=== PATIENT | female | born 1950 | race Caucasian/White ===

== ENCOUNTER → 2016-08-22 | Outpatient (CLI) | payer BC, MEDICARE ==
[~2016-08-22] MED LIST: ALIGN4 MG PO; ASPIRIN EC81 MG PO; CARDIZEM60 MG PO; COLACE100 MG PO; CRESTOR20 MG PO; CYMBALTA60 MG PO; DILAUDID 2MG(HYD2 MG PO; DILAUDID2 MG PO; DRISDOL 5050000 UNIT PO; ESTRADIOL TOP; FISH OIL1000 MG PO; LIDOCAINE1 EACH TRANS; MIRALAX17 GM PO; MOBIC7.5 MG PO; MULTIVITAMINS1 EAC1 PO; NEURONTIN300 MG PO; NIFEREX-150) (150 MG PO; OCEAN NASAL) (A44 ML NOSE; OMEPRAZOLE20 MG PO; PRILOSEC20 MG PO; PROVENTIL OR V6.7 GM INH; SINGULAIR10 MG PO; SYMBICORT 16010.2 GM INH; TENORMIN50 MG PO; THERA-VITE W/ B1 TAB PO; TYLENOL325 MG PO; VALIUM5 MG PO; XARELTO10 MG PO; ZOFRAN4 MG PO
--- NOTE | ~2016-08-22 | ENPV ---
Vascular Lower Extremities DVT Study Procedure Demographics Patient Name LEONIE BUNCH Date of Study 08/22/2016 Patient Number [id number] Gender Female Date of 1950 Age 65 Visit Number [id number] Height Accession Number [id number] Weight Room Number BSA BMI Referring Won Hamilton MD Interpreting Doni Hernandez MD Physician Physician Physician Ordering Physician Won Kline MD High Speed Warper Tender Shahla Gandhi, RT,RVT,RDCS Daquan Юлия Oteroe RDCS, RVT Conclusions Summary No evidence of deep vein thrombosis or superficial thrombophlebitis in the right lower extremity . Procedure Type of Study: Veins:Lower Extremities DVT Study, Lower Extremity Right. Indications for Study:Swelling of Limb and Pain in Limb. Appropriate Use Criteria:8 Patient Status:Routine. Study Location:Vascular Lab. Technical Quality:Adequate visualization. - Preliminary reported to:Dr. Upton's Nurse. Velocities are measured in cm/s ; Diameters are measured in cm Right Lower Extremities DVT Study Measurements Right 2D and Doppler Measurements + + + + +------+------+ + !Location !Visualized!Compressibility!Thrombosis!Signal!Reflux!Reflux ! ! ! ! ! ! ! !(sec) ! + + + + +------+------+ + !GSV Thigh !Yes !Yes !None !Phasic! ! ! + + + + +------+------+ + !Common !Yes !Yes !None !Phasic! ! ! !Femoral ! ! ! ! ! ! ! + + + + +------+------+ + !Prox !Yes !Yes !None !Phasic! ! ! !Femoral ! ! ! ! ! ! ! + + + + +------+------+ + !Mid Femoral!Yes !Yes !None !Phasic! ! ! + + + + +------+------+ + !Dist !Yes !Yes !None !Phasic! ! ! !Femoral ! ! ! ! ! ! ! + + + + +------+------+ + !Popliteal !Yes !Yes !None !Phasic! ! ! + + + + +------+------+ + !Gastroc !Yes !Yes !None ! ! ! ! + + + + +------+------+ + !PTV !Yes !Yes !None ! ! ! ! + + + + +------+------+ + !Peroneal !Yes !Yes !None ! ! ! ! + + + + +------+------+ + Left Lower Extremities DVT Study Measurements Left 2D and Doppler Measurements + + + + +------+------+ + !Location !Visualized!Compressibility!Thrombosis!Signal!Reflux!Reflux ! ! ! ! ! ! ! !(sec) ! + + + + +------+------+ + !Common !Yes !Yes !None !Phasic! ! ! !Femoral ! ! ! ! ! ! ! + + + + +------+------+ + Signature dtt: MOISES BEE dtoswaldo: 08/22/16 1631 Physician Self Edit
== END | disposition disaster alternative care site (69) ==
LOC: GCAR 16:00
DX: M79.604 Pain in right leg (principal); M79.89 Other specified soft tissue disorders; Z96.641 Presence of right artificial hip joint

== ENCOUNTER 2016-09-25 10:00 | Inpatient (IN) | payer BC, MEDICARE ==
[~2016-09-25] VITALS: Ht 157.5 cm; Wt 74.1 kg
--- NOTE | ~2016-09-25 | OR ---
PATIENT'S NAME: LEONIE BUNCH [facility] AGE: 66 Y [address] ROOM: [place] [address] LOCATION: [facility] ADMIT DATE: 10/02/2016 OR/Procedure Report DISCHARGE DATE: FAMILY PHYSICIAN: Louisa Sethi MD ATTENDING PHYSICIAN: JANETTE MEHTA SURGEON: Janette Mehta MD CUSTOMER BUSINESS MANAGER: Gorge Xiong CST/SHANTEL and Janette Lopez. DATE OF PROCEDURE: 10/02/2016 PRE-OP DIAGNOSIS: Degenerative joint disease left knee. POST-OP DIAGNOSIS: Degenerative joint disease left knee. OPERATION: Left total knee arthroplasty with computer navigation. ANESTHESIA: Spinal anesthesia plus adductor canal block plus periarticular local anesthesia (ropivacaine with epinephrine and Toradol). ESTIMATED BLOOD LOSS: Less than 10 mL. DRAIN: None. SPECIMEN: None. COMPLICATIONS: None. IMPLANT SYSTEM: Vivian Triathlon. Size 4 left posterior stabilized femoral component. Size 3 Davis Modular tibial baseplate. 9 mm posterior stabilized size 3 X3 tibial polyethylene insert. 29 mm Oval X3 patellar component (triple pegged). INDICATIONS FOR SURGERY: Leonie Bunch is a 66-year-old female who presents with advanced left knee degenerative joint disease and associated severely compromised activities of daily living. The patient has decided to proceed with knee replacement after having been thoroughly counseled regarding the associated risks, benefits, and limitations. We have specifically reviewed the risks and implications of infection, deep venous thrombosis, pulmonary embolism, mortality, neurovascular complications, blood transfusion (and associated potential for disease transmission or transfusion reaction), stiffness, instability, mechanical deterioration of the components (due to wear and or loosening), and the potential need for revision. We have also emphasized the importance of active involvement and compliance with post- operative physical therapy as a means of optimizing range of motion and PATIENT'S NAME: LEONIE BUNCH [facility] AGE: 66 Y [address] ROOM: [place] [address] LOCATION: [facility] ADMIT DATE: 10/02/2016 OR/Procedure Report DISCHARGE DATE: FAMILY PHYSICIAN: Louisa Sethi MD ATTENDING PHYSICIAN: JANETTE MEHTA functional recovery. Informed consent has been granted. DESCRIPTION OF PROCEDURE: The patient was positioned supine after administration of anesthesia and prophylactic antibiotics. A well-padded pneumatic tourniquet was placed around the left proximal thigh, and the left lower extremity was prepped and draped with vigilant sterile technique. The patient's name as well as the intended operative side and procedure were confirmed with a verbal time-out involving myself, the circulating nurse, the scrub nurse, and the anesthesiologist. Examination under anesthesia demonstrated no active skin lesions or masses. There was no erythema. There was no abnormal warmth. There was a large effusion. There was severe ipsilateral pes planovalgus. Range of motion under anesthesia was from 2 degrees of hyperextension to 140 degrees of flexion. There was no ligamentous insufficiency. The left lower extremity was elevated and exsanguinated with an Esmarch wrap, and the pneumatic tourniquet was inflated to 300 mmHg. The knee was approached through a longitudinal midline incision. A medial parapatellar arthrotomy was performed and the patella was everted. Examination of the joint space demonstrated a large amount of benign-appearing translucent synovial fluid. There were no loose bodies. There was no significant synovitis. Cruciate ligaments were intact. There was a small osteophyte at the intercondylar notch. There was moderate chondrocalcinosis at the lateral tibial plateau and lateral meniscus. There was complex degenerative tearing of the medial meniscus including a large horizontal cleavage tear. There was moderate inner perimeter tearing of the lateral meniscus. There was full- thickness fissuring at the central aspect of the lateral femoral condyle. There were generalized grade 2 degenerative changes at the medial tibial plateau. There was mild grade 3 chondromalacia at the medial and lateral femoral condyles. There were small osteophytes at the lateral femoral condyle as well as the lateral trochlea. There was full-thickness loss of articular cartilage throughout the lateral two-thirds of the femoral trochlea and 90% of the patella. There were associated longitudinal striations in the underlying eburnated subchondral bone yielding a corduroy appearance. Remnants of the menisci and cruciate ligaments were excised. The Smarp navigation femoral tracker was pinned in place at the distal aspect of the femoral trochlea. Absence of motion between the femur and the tracking device was confirmed manually and visually. Femoral osseous landmarks were obtained in order to calibrate the computer navigation system. Landmarks included the center of rotation of the ipsilateral hip, the center-point of the distal femur, the femoral AP axis, 57 points on the medial femoral condyle articular surface, and 57 points on the lateral femoral condyle articular PATIENT'S NAME: LEONIE BUNCH [facility] AGE: 66 Y [address] ROOM: [id number] [place], [place] [address] LOCATION: [facility] ADMIT DATE: 10/02/2016 OR/Procedure Report DISCHARGE DATE: FAMILY PHYSICIAN: Louisa Sethi MD ATTENDING PHYSICIAN: JANETTE MEHTA. The [employer] computer navigation system was subsequently utilized to position the distal femoral resection block such that the distal femoral resection was performed perfectly perpendicular to the femoral mechanical axis. The distal femoral resection was performed with a Efficas oscillating saw. The [employer] computer navigation tibial tracker was pinned in place at the anterior aspect of the tibial plateau. Absence of motion between the tibia and the tracking device was confirmed manually and visually. Tibial osseous landmarks were obtained in order to calibrate the computer navigation system. Landmarks included the center-point of the tibial plateau, the AP tibial axis, 57 points on the medial tibial plateau articular surface, 57 points on the lateral tibial plateau articular surface, the medial malleolus, and the lateral malleolus. The [employer] computer navigation system was subsequently utilized to position the proximal tibial resection block such that the proximal tibial resection was performed perfectly perpendicular to the tibial mechanical axis. The proximal tibial resection was performed with a [employer] oscillating saw. Perpendicularity of the tibial resection with respect to the tibial shaft axis was reconfirmed by inserting a spacer- block attached to an extramedullary guide jacobo. External rotation of the anterior and posterior femoral resections was set parallel to the epicondylar axis and carefully adjusted in order to create a rectangular flexion gap. The box resection was performed with a reciprocating saw. Anterior and posterior chamfer resections were performed with the oscillating saw. Posterior condyle osteophytes were excised with an osteotome. All other osteophytes were excised with a rongeur. Resection of all remnants of the menisci was reconfirmed. Flexion and extension gaps were confirmed to be symmetric and well balanced with a spacer-block technique. The patella resection was performed with an oscillating saw such that the composite thickness of the reconstructed patella was equivalent to the thickness of the [place] patella. Patella tracking was confirmed to be optimal. A lateral retinacular release was required in order to optimize patella tracking. All trial components were removed and all prepared osseous surfaces were thoroughly irrigated with pulsatile saline lavage and dried prior to cementing all three components in a single stage using Dang Simplex cement containing pre-mixed tobramycin. All extruded excess cement was removed. The entire joint space was thoroughly inspected and thoroughly irrigated with bacteriostatic pulsatile saline lavage to assure that there was no residual debris of any sort. Final range of motion was from full extension (with no passive PATIENT'S NAME: LEONIE BUNCH [facility] AGE: 66 Y [address] ROOM: [address] [address] LOCATION: [facility] ADMIT DATE: 10/02/2016 OR/Procedure Report DISCHARGE DATE: FAMILY PHYSICIAN: Louisa Sethi MD ATTENDING PHYSICIAN: JANETTE MEHTA hyperextension), 130 degrees of flexion. Patella tracking was reconfirmed to be optimal. There was very good anteroposterior stability at 90 degrees of flexion. There was 1 mm of medial lift-off to valgus stress in full extension. There was less than 1 mm of lateral lift-off to varus stress in full extension. The arthrotomy was closed with multiple simple and [id number] interrupted #1 Vicryl. Subcutaneous tissues were thoroughly re-irrigated with bacteriostatic pulsatile saline lavage. Subcutaneous tissues were re- approximated with simple buried interrupted #0 Vicryl sutures. The skin was closed with simple buried interrupted 2-0 Vicryl sutures followed by surgical deloris. The dressing consisted of Xeroform gauze, 4x4 gauze, ABD pads and two 6-inch Jimmie Wraps. There were no intra-operative complications. MD KRISTEL SRINIVASAN/leonidas /[id number] d: 10/02/16 1025 t: 10/03/162, OPERATIVE SUMMARY
--- NOTE | ~2016-09-25 | DS ---
PATIENT'S NAME: LEONIE BUNCH [facility] AGE: 66 Y [address] ROOM: [place] [address] LOCATION: [facility] ADMIT DATE: 10/02/2016 Discharge Summary DISCHARGE DATE: 10/06/2016 FAMILY PHYSICIAN: Louisa Sethi MD ATTENDING PHYSICIAN: Wallace Upton DATE OF PROCEDURE: 10/02/2016. PRIMARY DIAGNOSIS: Degenerative joint disease of the left knee. SECONDARY DIAGNOSIS: 1. Hypertension. 2. Hyperlipidemia. 3. Supraventricular tachycardia. PROCEDURE PERFORMED: Left total knee arthroplasty. HISTORY: The patient is a 66-year-old female, who presented with advanced left knee degenerative joint disease and associated severely compromised activities of daily living. The patient has decided to proceed with total knee arthroplasty after having been thoroughly counseled regarding the risks, benefits, limitations and alternatives. Please refer to the outpatient clinic notes and admission history and physical for this patient. HOSPITAL COURSE: The patient underwent a left total knee arthroplasty on 10/02/2016 without complications. Spinal anesthesia plus adductor canal block plus periarticular local anesthesia was utilized. The patient received 24 hours of perioperative prophylactic antibiotics and remained hemodynamically stable, neurovascularly intact throughout the entire hospital course. The postoperative prophylactic deep venous thrombosis prophylaxis consisted of Xarelto, early mobilization and pneumatic compression devices. Daily physical therapy for gait training, transfer training range of motion and quadriceps isometric exercises were received. The patient progressed well in physical therapy. On the date of discharge, 10/06/2016, the incision at the knee was healing well and showed no signs of infection. DISPOSITION: Home. DISCHARGE ACTIVITY: The patient is to bear weight as tolerated with range of motion and quadriceps isometric exercises as instructed. She is to hold her ROM until her follow-up appointment. The operative extremity is to be elevated at least 90% of the day. There is to be sterile 4x4 gauze dressings to the incision daily. Dr. Upton is to be notified immediately if there is any increased pain, fevers, chills erythema or drainage. She may remove her drssing and shower on 10/07/2016. Then recover with 4x4's and tubigrip. PATIENT'S NAME: LEONIE BUNCH [facility] AGE: 66 Y [address] ROOM: [place] [address] LOCATION: [facility] ADMIT DATE: 10/02/2016 Discharge Summary DISCHARGE DATE: 10/06/2016 FAMILY PHYSICIAN: Louisa Sethi MD ATTENDING PHYSICIAN: Wallace Upton DISCHARGE MEDICATIONS: 1. Xarelto 10 mg one tablet daily for 12 days for postoperative DVT prophylaxis. 2. Gabapentin 300 mg one tablet p.o. every night for seven days for pain. 3. Hydromorphone 2 mg one to two tablets every 4 hours p.r.n. for pain. 4. Diazepam 5 mg one half to one tablet p.o. every 6 hours p.r.n. for muscle spasms. She was then instructed to continue all her other pre-admission medications as instructed by her Internal Medicine doctor. FOLLOWUP: Followup appointment is to be with Dr. Upton on 10/09/[address] Upton's office for her initial postoperative evaluation with x-rays of her left knee at that time. SUSIE CONNORS PA-C FOR MD EARL SRINIVASAN/leonidas /[id number] d: 10/16/16622 t: 11/04/16 2139, DISCHARGE SUMMARY
[~2016-09-25 10:00] MED LIST changes: -LIDOCAINE1 EACH TRANS
--- NOTE | 2016-10-02 10:16 | NUR ---
1000 ATTEMPTED TO CALL OSMANI ZEPEDA ON REPORT. WAS TOLD THAT RN WOULD CALL BACK. NOTIFIED IN WAITING ROOM AND WILL MEET PT IN ROOM.
--- NOTE | 2016-10-02 17:16 | NUR ---
D: Patient received form PACU at 1015. Routine VS. Dressing CDI. CSM WNL. Dilaudid 2mg and Tylenol ES last given at 1641. Toradol 15mg at 1305. Dilaudid 0.2 mg IVP given at 1351. Kpad to back due to achiness in lower back. Up in recliner/commode with walker and one assist. Voiding without difficulty. Taking PO well.
--- NOTE | 2016-10-02 19:12 | NUR ---
I reviewed and approve of charting by SN Ana M
--- NOTE | 2016-10-03 05:03 | NUR ---
Significant Event: Patient alert and oriented. Up with 1 assist. IV saline locked. Denies abnormal sensation. VSS on 1L oxygen via nasal cannula. Voiding without difficulity Rested throughout shift. Pleasant and cooperative with cares. Follow up: continue to monitor
--- NOTE | 2016-10-03 07:25 | NUR ---
D: Patient assist to commode/recliner with walker and one assist. C/O lt knee pain. Noted HR at 166 on BP monitor. Apical pulse 166. Patient c/o feeling weak. Assisted back to bed. O2 at 1L per nasal cannula. Heart rate remains in 160's. 0740 Dr. Hernández notified and orders received. 0804 Lopresser 5mg IVP given. Jorge Luis WERNER in room. 0810 BP 143/73-72-16-94% at 1L O2. Patient reports feeling better.
--- NOTE | 2016-10-03 09:30 | NUR ---
Introduced self/role to patient. Her plan was to go home om Saturday when she will have more help. Her sister is coming down Saturday evening. Her will also be around. Didn't think she needed any other DME. Anticipated discharge was tomorrow. Patient reported she was also having heart issues which we are monitoring. Added my name to her marker board, will conitnue to follow.
--- NOTE | 2016-10-03 09:45 | NUR ---
D: Telemetry called and reports patient's HR 160's SVT. BP 106/64. 0950 DEBBI Sutherland notified. Orders received. 1013 Lopressor 5mg IVP given. 1040 DEBBI Kang notified of HR 150's. Orders received.
--- NOTE | 2016-10-03 10:49 | NUR ---
D: Patient HR 160's. Lopressor 5 mg given IVP at 0804. Hr went down to 70's. 0945 HR back up to 160's -SVT per telemetry. BP 106/64. Lopressor 5mg IVP and cardizem 60mg po given at 1013. HR continues at in 150's. Jimmie wrap dressing dry and intact to lt knee. CSM WNL. CSM checks q2h until 1500 then q4h. Dilaudid 2mg and tylenol ES 1000mg last at 1022. Zofran 4mg IVP at 0852 for nausea. DIlaudid 0.2 mg IVP x2 last at 0848. C/O lt knee pain and rt lower back pain. One assist with walker to chair/commode. Alert and oriented. EZ wrap to left knee.
--- NOTE | 2016-10-03 14:49 | NUR ---
I reviewed and approve of charting by SN Hernan.
[2016-10-03 15:11] LABS: ANION GAP 10.7 (10.0-19.0); BLOOD UREA NITROGEN 6 mg/dL (6-24); CALCIUM 7.8 mg/dL (8.5-10.5); CHLORIDE 94 mMol/L (96-110); CO2 28 mMol/L (22-32); CREATININE 0.5 mg/dL (0.5-1.1); ESTIMATED GFR (MDRD EQUATION) > 60; MAGNESIUM 1.8 mg/dL (1.8-2.6); POTASSIUM 3.7 mMol/L (3.7-5.1); SODIUM 129 mMol/L (135-145)
--- NOTE | 2016-10-03 17:39 | NUR ---
1145 PT TRANSFERED BY BED TO 6336 FOR SVT RATES 160'S AT TIME OF TRANSFER PT IS A/O PALE TO ALMOST SALLOW COLORED COOL AND CLAMY TO THE TOUCH, BUT PT SAYS SHE FEELS HOT. 105/51-98/56 ARE HER 2 OPENING SYSTOLOIC PRESSURES. ORDERED TO ASTART CARDIZEM BOLUS AND DRIP. PRESSURES GOT LOW 85/54. DR ALCANTARA CALLED AND NEW ORDERS RECIVED, NS OPEN FOR 500 MLS, AND DIGOXIN .[address] ALCANTARA NOW AT BEDSIDE. 1210 LOPRESSOR 5 MG GIVEN, ONLY 2.5 MG ADMINISTERED AND PT CONVERTED TO SR RATES 60'S. PT MORE PINK NOW AND SAYS SHE FEELS BETTER. DID NOT GIVE CARDIZEM BOLUS, BUT DID START CARDIZEM DRIP AT 5 MG/HR TO KEEP HEART RATE MORE UNDER CONTROLL. PRESSURES REMAIN MOSTLY 120'S TO 130'S, PT IS STABLE. ICE PACKS TO BILATERAL KNEES PER PT REQUEST.
[2016-10-04 04:44] LABS: ALBUMIN 3.7 gm/dL (3.5-5.0); ANION GAP 12.6 (10.0-19.0); BLOOD UREA NITROGEN 6 mg/dL (6-24); CALCIUM 8.8 mg/dL (8.5-10.5); CHLORIDE 99 mMol/L (96-110); CO2 25 mMol/L (22-32); CREATININE 0.5 mg/dL (0.5-1.1); ESTIMATED GFR (MDRD EQUATION) > 60; MAGNESIUM 2.5 mg/dL (1.8-2.6); PHOSPHORUS 3.6 mg/dL (2.5-4.9); POTASSIUM 3.6 mMol/L (3.7-5.1); SODIUM 133 mMol/L (135-145)
--- NOTE | 2016-10-04 05:06 | NUR ---
Significant Event:A/Ox3. VSS on 2L/NC. Afebrile. Patient remains in SR HR 60-70s all shift. Cardizem remains at 5mg/h, held PO dose while drip is running. Dilaudid TECHNICAL ACCOUNT EXECUTIVE demand only 0.1mg with 15 minute LO. 9 demands/ 8 given. 2 G Mg replaced this AM mg 2.5. Transfers 1 assist to BSC. Voiding well. Ice to R)knee off and on throughout the shift. Follow up:Possible transfers back to 3/[facility]U today.
--- NOTE | 2016-10-04 12:33 | NUR ---
Significant Event: PT AMB 1 ASST, SHOWER THIS AM OK. 02 COULD NOT BE OFF, HAD TO BE 1LITER. FLOWERS SALESPERSON DCD AT 1215. ES TYLENOL GIVEN AT NOON. LASIX IV GIVEN, GOOD UOP. K 3.6 PO K+TO BE GIVEN TODAY. P/T WORKS WITH PT AND OT. CARDIZEM DRIP OFF THIS AM AND PO STARTED AGAIN. SBP WNL. MG 2.5. NA 133. MIRALAX AND STOOL SOFTENER GIVEN. INCISION LOOKS NORMAL WITH BLAIR INTACT, SINAN AND OLD DRESSING REMOVED HAD SCANT BLOODY, AND NEW GAUZE AND TUBIGRIP ON. PT USES WALKER WELL. Follow up:
--- NOTE | 2016-10-04 16:29 | NUR ---
Significant Event: TRANSFERED DOWN FROM U AT 1230. DRSG CHANGED TO KN INCISION INTACT WITH BLAIR, KNEE ECCHYMOTIC. CSM GOOD. HAD DILAUDID 0.2 MG IV AT 1300, HAD DILAUSIS 2 MG 1 TAB X2 LASTAT 1500. RECIEVED VALIUM 5 MG 1 TAB AT 1600 FOR SPASMS. REPORTS SPASMSGETTING BETTER OF 1645. ICE TO KNEE, POSS DISMISSAL SATURDAY...IS ON TELE NO CALLS.... Follow up:
--- NOTE | 2016-10-05 04:53 | NUR ---
Significant Event: Dressing was reinforced per MD order. CSM WNL. 1 L of oxygen nasal cannula. Pain issues at the beginning of the shift. Dilaudid at 419. Toradol at 2040. Dilaudid IV at 1945. Voids without difficulty. Follow up:
[2016-10-05 05:55] LABS: CALCIUM 8.7 mg/dL (8.5-10.5); CHLORIDE 101 mMol/L (96-110); CO2 26 mMol/L (22-32); CREATININE 0.5 mg/dL (0.5-1.1); ESTIMATED GFR (MDRD EQUATION) > 60; SODIUM 133 mMol/L (135-145)
[2016-10-05 05:56] LABS: ANION GAP 10.5 (10.0-19.0); BLOOD UREA NITROGEN 13 mg/dL (6-24)
[2016-10-05 05:57] LABS: POTASSIUM 4.5 mMol/L (3.7-5.1)
--- NOTE | 2016-10-05 16:57 | NUR ---
Significant Event: dressing to L) knee changed this AM after shower, dressing changed by Eliot LO. note Jimmie dressing c/d/i this afternoon. csm assessments wnl. received dilaudid 2mg po every 2 hours, rates l) knee pain 8-3 on pain scale, received routine tylenol extra strength 2 tabs and po valium at 1125. ambulates to bathroom, kapadia and up to chair with sba, use of walker/gait belt, gait steady. bilateral knee high teds and foot pumps on. ez wrap and ice bag in place l) knee/thigh. On telemetry with no calls. received last dilaudid at 1600. Follow up:
--- NOTE | 2016-10-06 02:31 | NUR ---
Significant Event: A&Ox3, VSS on room air. Patient O2 SATs do drop into the high 80's while asleep. Patient refusing oxygen tonight as she "wants to go home". Rates pain from 7-9/10 but shows no non-verbal signs of pain and appears to rest comfortably between medication administrations. PO dilaudid, 2mg, given Q2 hrs. Patient requested to be woken up every 2 hrs for pain medication. Valium given at HS per patient request. Up to bathroom and ambulating in room with SBA. Follow up: D/C to home today.
[2016-10-06 07:14] LABS: ANION GAP 12.1 (10.0-19.0); BLOOD UREA NITROGEN 11 mg/dL (6-24); CALCIUM 8.8 mg/dL (8.5-10.5); CHLORIDE 99 mMol/L (96-110); CO2 29 mMol/L (22-32); CREATININE 0.5 mg/dL (0.5-1.1); ESTIMATED GFR (MDRD EQUATION) > 60; POTASSIUM 4.1 mMol/L (3.7-5.1); SODIUM 136 mMol/L (135-145)
[2016-10-06] MEDS ORDERED: COLACE100 MG PO (08:08)
[2016-10-06] MEDS ORDERED: NEURONTIN300 MG PO (08:09)
[2016-10-06] MEDS ORDERED: MIRALAX17 GM PO (08:19)
[2016-10-06] MEDS ORDERED: VALIUM5 MG PO (08:20)
[2016-10-06] MEDS ORDERED: DILAUDID 2MG(HYD2 MG PO (08:21)
[2016-10-06] MEDS ORDERED: XARELTO10 MG PO (08:22)
--- NOTE | 2016-10-06 12:35 | NUR ---
D: PATIENT ALERT AND ORIENTED X3. AMBULATES AD BENNETT AND UP TO CHAIR WITH SBA, USE OF WALKER/GAIT BELT. SINAN DRESSING TO L) KNEE C/D/I. CSM ASSESSMENTS WNL. PAIN WELL CONTROLLED WITH PO DILAUDID 2MG TAB GIVEN ABOUT EVERY 2 HOURS AND TYLENOL EXTRA STRENGTH GIVEN LAST AT 1135 AND VALIUM PO GIVEN LAST AT 0915. BILATERAL KNEE HIGH DECLAN HOSE AND FOOT PUMPS ON. EZ WRAP TO L) KNEE. DISCHARGE INSTRUCTIONS REVIEWED WITH PATIENT AND , VERBALIZES UNDERSTANDING. PATIENT DISMISSED TO HOME, ACCOMPANIED BY . ASSISTED TO VEHICLE VIA W/C AND TA ASSISTANCE.
== END 2016-10-06 12:34 | disposition disaster alternative care site (69) | DRG 470 ==
LOC: G3N 10-02 05:12 → GPCU 10-03 11:38 → G3N 10-04 12:34
PROVIDERS: Internal Medicine; ADMIT Orthopaedic Surgery
PROC: 0SRD0J9 Replacement of Left Knee Joint with Synthetic Substitute, Cemented, Open Approach (ICD-10-PCS; principal; 2016-10-03)
DX: M17.12 Unilateral primary osteoarthritis, left knee (principal); E87.1 Hypo-osmolality and hyponatremia; I10 Essential (primary) hypertension; I47.1 Supraventricular tachycardia; E78.5 Hyperlipidemia, unspecified; J45.909 Unspecified asthma, uncomplicated; M54.5 Low back pain; R06.00 Dyspnea, unspecified; R09.02 Hypoxemia; E87.70 Fluid overload, unspecified
CPT/HCPCS: C1713; C1776; J1100; J1160; J1170; J1885; J1940; J2001; J2250; J2405; J2795; J3475; J7030; J7040; J7050; J7120; P9045

== ENCOUNTER 2016-12-13 19:50 | Inpatient (IN) | payer BC, MEDICARE ==
[~2016-12-13] VITALS: Ht 154.9 cm; Wt 67.3 kg
--- NOTE | ~2016-12-13 | OR ---
PATIENT'S NAME: LEONIE BNUCH [facility] AGE: 66 Y [address] ROOM: [id number] [place], [place] [address] LOCATION: GICU ADMIT DATE: 12/13/2016 OR/Procedure Report DISCHARGE DATE: FAMILY PHYSICIAN: Louisa Sethi MD ATTENDING PHYSICIAN: Leola Hodges SURGEON: Leola Hodges MD HIDE MEASURING MACHINE OPERATOR: Daniel Alonso CST. DATE OF PROCEDURE: 12/15/2016 PREOPERATIVE DIAGNOSES: 1. Left pontine hemorrhage. 2. Non-functioning right ventriculostomy. POSTOPERATIVE DIAGNOSES: 1. Pontine hemorrhage. 2. Replaced ventriculostomy. PROCEDURE PERFORMED: Replacement of right frontal ventriculostomy. ANESTHESIA: General. ANESTHESIA PROVIDER: Piyush Cruz MD. HISTORY: The patient is a 66-year-old female, who underwent placement of ventriculostomy for pontine hemorrhage and potential hydrocephalus. The ventriculostomy was inserted on patient's admission on December 13, 2016. The ventriculostomy worked well at first, but then started to slow down, and was no longer working by the . The patient's ventricles had gone up slightly. I therefore felt that it was necessary to replace the ventriculostomy to provide a means of decompressing the ventricles and also to monitor the patient's intracranial pressure. I discussed the procedure with the patient's over the phone and consent was obtained. The patient was brought to the operating room for replacement of the ventriculostomy. PROCEDURE IN DETAIL: In the operating room, the patient was placed in a supine position. Sedation was given. Her head was placed in a gel donut. The site of the ventriculostomy was exposed. The area was prepped in a sterile fashion. Initial attempts at flushing the ventriculostomy were unsuccessful. We therefore took out the old ventriculostomy, and using the same entry point, placed another ventriculostomy. The replacement ventriculostomy worked very well. It was secured to the scalp. The incision was closed, and the patient was brought back to the intensive care unit. PATIENT'S NAME: LEONIE BUNCH [facility] AGE: 66 Y [address] ROOM: [id number] [place], [place] [address] LOCATION: GICU ADMIT DATE: 12/13/2016 OR/Procedure Report DISCHARGE DATE: FAMILY PHYSICIAN: Louisa Sethi MD ATTENDING PHYSICIAN: Leola Hodges ATTESTATION: I was present during the entire procedure, assisted by operating room personnel. COMPLICATIONS: There were no apparent intraoperative complications. COUNT RESULTS: Swabs, needles, and instruments were all accounted for at the end of the case. ESTIMATED BLOOD LOSS: Less than 30 mL. There was no reason for blood transfusion. MD JUANIS WILCOXO/modl /[id number] d: 12/22/1620 t: 12/25/16 1931, OPERATIVE SUMMARY
--- NOTE | ~2016-12-13 | CON ---
PATIENT'S NAME: LEONIE BUNCH [facility] AGE: 66 Y [address] [place]: [id number] [address] LOCATION: GICU ADMIT DATE: 12/13/2016 Consultation DISCHARGE DATE: FAMILY PHYSICIAN: Louisa Sethi MD ATTENDING PHYSICIAN: Leola Hodges REFERRING PHYSICIAN: Jaylen Wolfe MD REASON FOR CONSULT: Paroxysmal atrial fibrillation SVT HISTORY OF PRESENT ILLNESS: The patient is a 66-year-old female, who was admitted yesterday secondary to fall and altered mental status. She has a history of chronic brain bleed and had a ventricular ostomy tube placed on December 13 that was no longer functioning. She was admitted to the ICU for further evaluation and treatment. She underwent a ventriculostomy replacement with Dr. Hodges yesterday. She was noted to have runs of SVT during the night. She had come in with home medications of labetalol. This was stopped and she was started on metoprolol and amiodarone with good response. The patient states that during the episode of SVT, she felt her heart racing, however, did not have chest pain or pressure. She did not feel dizzy. She does not have any shortness of breath, nausea, or other symptoms. She is feeling fine at this moment. PAST MEDICAL HISTORY: 1. Paroxysmal atrial fibrillation. 2. Subdural hematoma. PAST SURGICAL HISTORY: 1. Right hip. 2. Hysterectomy. 3. Tonsillectomy. 4. Cholecystectomy. 5. Carpal tunnel surgery. REVIEW OF SYSTEMS: Negative except as noted in the HPI. FAMILY HISTORY: Noncontributory. SOCIAL HISTORY: . No tobacco. Daily alcohol. ALLERGIES: PENICILLIN AND SULFA. PATIENT'S NAME: LEONIE BUNCH [facility] AGE: 66 Y [address] ROOM: [id number] [place] [id number] LOCATION: GICU ADMIT DATE: 12/13/2016 Consultation DISCHARGE DATE: FAMILY PHYSICIAN: Louisa Sethi MD ATTENDING PHYSICIAN: Leola Hodges MEDICATIONS: Please see medication list. PHYSICAL EXAMINATION: VITAL SIGNS: BP 138/79, heart rate of 62, O2 saturation 98% on room air. GENERAL: No apparent distress, alert, oriented x3. HEENT: Normocephalic, atraumatic. Partially shaved hair secondary to surgery. NECK: Supple. CARDIOVASCULAR: Regular rate and rhythm without murmurs, gallops, or rubs. LUNGS: Clear to auscultation bilaterally. ABDOMEN: Soft, nontender. Bowel sounds positive. IMAGING DATA: CT imaging, chest x-ray are in chart. LABORATORY DATA: CMS today within normal limits. ASSESSMENT AND PLAN: A 66-year-old female, status post right frontal ventriculostomy replacement for a pontine hemorrhage, chronic subdural hemorrhage, and possible hydrocephalus. 1. Paroxysmal atrial fibrillation. The patient had been rate controlled on labetalol, now using metoprolol and amiodarone. Her CHADS-VASc score is 4, which is high risk for stroke; however, the patient is not a candidate for anticoagulation secondary to chronic brain bleed. Recommend follow up outpatient for alternative procedures (Left Atrial Appendage obstruction) to help decrease her risk score. 2. Supraventricular tachycardia, rate controlled with metoprolol and amiodarone with good response. Heart rates in the 60s to 80s. Recommend continuing this for now. She had an echo this morning; will review. She has infrequent episodes and self limiting, has about 3-4 episodes a year prior to this admission. Thank you for this consult and for allowing us to care for this patient. YUILA JUAN MD RESIDENT FOR MD OSCAR RIVERA/leonidas /[id number] d: 12/25/16 1455 t: 01/01/17 1612, CONSULTATION REPORT
--- NOTE | ~2016-12-13 | ER ---
PATIENT'S NAME: LEONIE BUNCH [facility] AGE: 66 Y [address] ROOM: [place] [address] LOCATION: [facility] ADMIT DATE: 12/13/2016 ER/Outpatient Report DISCHARGE DATE: FAMILY PHYSICIAN: Louisa Sethi MD ATTENDING PHYSICIAN: Leola Hodges Time of Arrival: 1950 hours. Time of Evaluation: 1950 hours. CHIEF COMPLAINT: Brain bleed. HISTORY OF PRESENT ILLNESS: The patient is a 66-year-old female, who presents to the emergency department today with chief complaint of brain bleed. She was intubated and sedated at [place]. She was transferred here for higher level of care and neurosurgical intervention. She was brought to the emergency department for re-evaluation and possible transfer directly to surgery. PAST MEDICAL HISTORY: Atrial fibrillation and subdural hematoma. PAST SURGICAL HISTORY: Right hip. SOCIAL HISTORY: No tobacco use. Daily alcohol use. No illicit drug use. ALLERGIES: PENICILLIN AND SULFA. MEDICATIONS: Please see list. REVIEW OF SYSTEMS: Unable to be reviewed secondary to the patient's condition and intubation at this time. PHYSICAL EXAMINATION: VITAL SIGNS: Blood pressure 138/77; pulse 62; respiratory rate, currently being ventilated on the ventilator; temperature 97.7; and oxygen saturation 98%. HEENT: Normocephalic, atraumatic. Pupils are unable to be assessed due to the patient's eyelids are taped. NECK: Supple. PATIENT'S NAME: LEONIE BUNCH [facility] AGE: 66 Y [address] ROOM: [place] [address] LOCATION: [facility] ADMIT DATE: 12/13/2016 ER/Outpatient Report DISCHARGE DATE: FAMILY PHYSICIAN: Louisa Sethi MD ATTENDING PHYSICIAN: Leola Hodges CARDIOVASCULAR: Regular rate and rhythm. LUNGS: Clear to auscultation bilaterally. ABDOMEN: Soft, nontender, nondistended. No rebound, rigidity, or guarding. MUSCULOSKELETAL: The patient has good muscle tone. NEUROLOGICAL: GCS 15. Does have multiple-beat clonus on the right, 3-beat clonus on the left. SKIN: Warm and dry. LABORATORY DATA AND X-RAYS: CT imaging is reviewed. The patient does have a bleed in the vito. PTT is normal. INR is normal. Sodium 134, potassium 3.7, chloride 98, bicarb 22, creatinine 0.74, BUN 20, calcium 9.2, glucose 113, AST is 20, alkaline phosphatase 102, ALT is 25. CBC: White blood cell count is normal, hemoglobin 13.9, hematocrit 41, platelets 271. CT scan of the C-spine was negative. CT scan of the head showed left pontine and left mesencephalon hemorrhage with focal 2 mm shift in the midline to the right. IMPRESSION: 1. Acute left pontine and left mesencephalic hemorrhage with focal 2 mm shift in the midline to the right. 2. Acute respiratory failure requiring intubation. 3. Initial visit. EMERGENCY DEPARTMENT COURSE: The patient was brought back to the examination room. Seen immediately upon arrival by myself. The patient was evaluated by myself. I have discussed the case with Dr. Hodges, who has seen and evaluated the patient down here in the emergency department. He also had a discussion with the family. Please see his dictation. DISPOSITION: The patient is admitted under the care of Dr. Hodges in fair condition. DO ALY LEVINE/modl /[id number] d: 12/14/16618 t: 12/21/16 1110, OUTPATIENT REPORT
--- NOTE | ~2016-12-13 | HP ---
PATIENT'S NAME: LEONIE BUNCH [facility] AGE: 66 Y [address] ROOM: [place] [address] LOCATION: GICU ADMIT DATE: 12/13/2016 History & Physical DISCHARGE DATE: FAMILY PHYSICIAN: Louisa Sethi MD ATTENDING PHYSICIAN: Leola Jones DATE OF SERVICE: 12/13/2016 REFERRING PHYSICIAN: Dr. Cj Hatch in [place]. REASON FOR REFERRAL: Brainstem hemorrhage. PATIENT IDENTIFICATION: Leonie Ramírez is a 66-year-old female. PRESENTING COMPLAINT: Fall and decreased level of consciousness. HISTORY OF PRESENT ILLNESS: History was obtained partly from the patient's as the patient herself was unable to provide a history. According to the , the patient had just taken out some garbage and was coming back into the house. She had climbed up 2 steps and somehow she either tripped or lost her footing and fell hitting the back of her head. The patient has remained stable for about an hour after the fall, but then she started slurring her speech and complaining of numbness on the right side of her body. The patient was able to walk by herself to the cart, helped a little bit by her , and was taken to the emergency room in [place]. She was initially stable in the ER, but rapidly began to lose consciousness. Her speech, which was already slurred became even more so and she had a facial droop. According to the [place] records, the patient's Jose A Coma Score was 15 at the time she arrived at the hospital and was triaged. This was about 5:00 p.m. in the afternoon. On account of the patient's decline in level of consciousness, she was intubated. At some point, she had a head CT scan, which showed a brainstem hemorrhage involving the left side of the vito. On account of this, the patient was transferred to [facility] for evaluation and treatment. PAST MEDICAL HISTORY: The patient has had hip and knee surgery in the past. She has also had a hysterectomy and a tonsillectomy as well as cholecystectomy and carpal tunnel surgery. PATIENT'S NAME: LEONIE BUNCH [facility] AGE: 66 Y [address] ROOM: [place] [id number] LOCATION: [facility] ADMIT DATE: 12/13/2016 History & Physical DISCHARGE DATE: FAMILY PHYSICIAN: Louisa Sethi MD ATTENDING PHYSICIAN: Leola Jones About a year ago, the patient had bur hole evacuation of subdural hematoma. Other medical problems include atrial fibrillation, arrhythmia, and hip dislocation. REVIEW OF SYSTEMS: Unable to carry out a review of systems at this time as the patient is nonresponsive. FAMILY HISTORY: There is no family history of relevance to present symptoms. SOCIAL HISTORY: The patient is . PHYSICAL EXAMINATION: GENERAL: The patient is a middle-aged female who was seen in the ER. The patient was already intubated and being ventilated at the time I saw her. NEUROLOGIC: The patient has no eye opening. She does not follow commands and does not move any of her extremities. Pupils were about 4 mm bilaterally and reactive. CARDIOVASCULAR: Heart sounds present. RESPIRATORY: The patient is on a ventilator. EXTREMITIES: No cyanosis or clubbing. SKIN: No skin rashes or skin masses. HEENT: Head: There is a bump to the left side of the back of the patient's head, likely where she fell. Eyes and ears, no evidence of trauma. REVIEW OF IMAGING STUDIES: The patient has had a head CT scan performed in [place]. CT scan shows hemorrhage involving the left side of the vito. There is no extension into the ventricles, the 4th ventricle in particular is open. ASSESSMENT: A 66-year-old female with a fall and decreased level of consciousness. MEDICAL DECISION MAKING: I reviewed the imaging studies with the patient's family members and explained the problem to them. I explained to them the patient has had a brainstem hemorrhage involving the left side of the vito. There is no indication for neurosurgical intervention as far as draining the hemorrhage, however, I did recommend a ventriculostomy. The reason for the ventriculostomy is that we have no way of assessing the patient's level of consciousness and if she were to start developing hydrocephalus, at least the PATIENT'S NAME: JULIO C LEONIE M [facility] AGE: 66 Y [address] ROOM: [place] [address] LOCATION: [facility] ADMIT DATE: 12/13/2016 History & Physical DISCHARGE DATE: FAMILY PHYSICIAN: Louisa Sethi MD ATTENDING PHYSICIAN: Leola Jones ventriculostomy would help us to decrease and monitor high intracranial pressure. The benefits and risks and alternatives were reviewed with the family members and with their consent, the patient was taken to the operating room for surgery. LEOLA JONES MD CNO/modl /[id number] CC: Louisa Sethi MD D: 320 T: HISTORY & PHYSICAL
--- NOTE | ~2016-12-13 | ECHO ---
Transthoracic Echocardiography Report (TTE) Demographics Patient Name LEONIE BUNCH Date of Study 12/25/2016 Patient Number [id number] Visit Number [id number] Date of 1950 Room Number [id number] Accession Number [id number] Gender Female Age 66 year(s) Referring Navdeep Jasso MD Garnisher Padmini Carrizales [facility], Physician RVT Physician Interpreting Noreen [place] [employer] Installer Physician MD Supervising Ordering Physician Shakila Dunaway MD/MLP Nurse Stress Bog Worker Conclusions Summary Normal LV/RV size and systolic function .The estimated left ventricular ejection fraction is 60-65%. Mild to moderate concentric left ventricular hypertrophy. Diastolic assessment reveals Grade I diastolic dysfunction. The left atrium is mildly dilated by LA volume index measurement. Mild mitral regurgitation by color Doppler. The mitral valve is not well imaged. There is mild aortic regurgitation by color Doppler. The aortic valve is mildly sclerotic. No evidence of pericardial effusion. Procedure Type of Study TTE procedure:2D Echocardiogram. Procedure Date Date: 12/25/2016 Start: 07:30 AM Study Location: Inpatient Portable Technical Quality: Limited visualization due to new item. Indications:Abnormal ECG. Additional Indications:SVT Appropriate Use Criteria: 9 Patient Status: Routine Rhythm: Within normal limits HR: 62 bpm BP: 155/65 mmHg M-Mode/2D Measurements LV Diastolic Dimension: 5.12 cm LV Systolic Dimension: 3.81 cm LV Septum Diastolic: 1.34 cm LV Septum Systolic: 3.07 cm LV PW Diastolic: 1.34 cm AO Root Dimension: 2.8 cm Cardiac Output: 4.71 l/min AV Cusp Separation: 1.5 cm RV Diastolic Dimension: 1.05 cm LA volume: 82 ml IVC Inspiration: 0.97 cm LVOT: 2.2 cm RV Base: 3.27 cm LVOT VTI: 20 cm RV Mid: 2.34 cm LV Stroke volume: 75.99 ml TAPSE: 2.6 cm TDI-S': 17.9 cm/s Doppler Measurements AV Peak Velocity: 1.94 m/s MV Peak E-Wave: 0.4 m/s AV Peak Gradient: 15.05 mmHg MV Peak A-Wave: 1.14 m/s AV Mean Gradient: 7 mmHg MV E/A Ratio: 0.35 LVOT Peak Velocity: 0.69 m/s MV P1/2t: 52 msec AV P1/2t: 1010.3 msec PV Peak Velocity: 1.1 m/s E' Septal Velocity: 0.05 m/s PV Peak Gradient: 4.84 mmHg E' Lateral Velocity: 0.07 m/s A' Septal Velocity: 0.11 m/s A' Lateral Velocity: 0.14 m/s Findings Left Ventricle The estimated left ventricular ejection fraction is 60-65%. Mild to moderate concentric left ventricular hypertrophy. Diastolic assessment reveals Grade I diastolic dysfunction. Right Ventricle Normal right ventricle structure and function. Left Atrium The left atrium is mildly dilated by LA volume index measurement. Right Atrium Grossly normal right atrial size. Mitral Valve Mild mitral regurgitation by color Doppler, tow jets. The mitral valve is not well imaged. Aortic Valve There is mild aortic regurgitation by color Doppler. The aortic valve is mildly sclerotic. Tricuspid Valve The tricuspid valve is not well visualized. Trivial tricuspid regurgitation by color Doppler. Pulmonic Valve No pulmonic valve regurgitation by color Doppler. Grossly normal pulmonic valve size and function. Pericardial Effusion No evidence of pericardial effusion. Miscellaneous Visualized portions of the aortic root and ascending aorta appear normal in size. Pleural Effusion No evidence of pleural effusion. Signature dtt: DANIA KWOK dtd: 12/25/16 0730 Physician Self Edit
--- NOTE | ~2016-12-13 | DS ---
PATIENT'S NAME: LEONIE BUNCH [facility] AGE: 66 Y [address] ROOM: [id number], [place] [address] LOCATION: [facility] ADMIT DATE: 12/13/2016 Discharge Summary DISCHARGE DATE: 12/26/2016 FAMILY PHYSICIAN: Louisa Sethi MD ATTENDING PHYSICIAN: Leola Hodges REASON FOR ADMISSION: The patient was transferred from [facility] with decreased level of consciousness. Imaging studies showed a brainstem hemorrhage involving the left-side of the patient's vito. On examination, the patient had already been intubated and was being ventilated. She had no eye- opening, did not follow commands, and did not move any of her extremities. There was a bump to the left-side of her head where she had fallen likely as a result of the hematoma at home. Family member has stated the patient was initially stable after that fall, but within a hour had become progressively less responsive and on arrival at the hospital in [place] had to be intubated. TREATMENT RENDERED: The patient was taken to the operating room and had a ventriculostomy placed for possible hydrocephalus, which could result from her brainstem hemorrhage. She was gently cared for by the neurointensivist as well as the neurosurgeons. The drain worked intermittently, but by the next day, it required replacement. It started working very well after that. The patient herself started to come around and was able to follow commands by the next day. It was possible to extubate her. She remained very unsteady though and had some divergent gaze. Throughout her stay in hospital, the patient continued to show improvement. Her speech was initially slurred, but became more distinct as time progressed. Subsequent CT scans showed that the hematoma itself was improving. The patient's blood pressure was also controlled as this was felt to have contributed to possibly responsible for the hemorrhage in the first place. The patient was evaluated by [facility] and found suitable for transfer. She went there on December 26, 2016. Arrangements have been made for her to be followed up in the Neurosurgery Clinic here upon release from [facility]. FINAL DIAGNOSES: 1. Left brainstem hemorrhage involving the vito. 2. Elevated blood pressure. 3. Unsteady gait. PATIENT'S NAME: LEONIE BUNCH [facility] AGE: 66 Y [address] ROOM: [address] [address] LOCATION: GICU ADMIT DATE: 12/13/2016 Discharge Summary DISCHARGE DATE: 12/26/2016 FAMILY PHYSICIAN: Louisa Sethi MD ATTENDING PHYSICIAN: Leola Hodges MD JUANIS WILCOXO/modl /[id number] d: t: 01/07/17 0045, DISCHARGE SUMMARY
--- NOTE | ~2016-12-13 | OR ---
PATIENT'S NAME: LEONIE BUNCH [facility] AGE: 66 Y [address] ROOM: [address] [address] LOCATION: [facility] ADMIT DATE: 12/13/2016 OR/Procedure Report DISCHARGE DATE: FAMILY PHYSICIAN: Louisa Sethi MD ATTENDING PHYSICIAN: Leola Jones SURGEON: Leola Jones MD PENSIONHOLDER INFORMATION CLERK: Frederic Edmond CST. DATE OF PROCEDURE: 12/13/2016 PREOPERATIVE DIAGNOSIS: Pontine hematoma. POSTOPERATIVE DIAGNOSIS: Pontine hematoma. PROCEDURE PERFORMED: Placement of right side ventriculostomy. ANESTHESIA: General. ANESTHESIA PROVIDER: Adrian Estrada MD. HISTORY: The patient is a 66-year-old female who was admitted with a pontine hemorrhage. Ventriculostomy was indicated to help with possible hydrocephalus if it develops and also to monitor the patient's intracranial pressure as there was no other way of assessing her neurologically as she had been intubated. The procedure, benefits, and risks were discussed with the patient's ; with his consent, the patient was brought to the operating room for surgery. DESCRIPTION OF PROCEDURE: In the operating room, the patient was placed in a supine position. She was already intubated. Anesthesia was induced. The hair on the right side of her head was clipped. The incision line was marked out at 12.5 cm behind the right midpupillary line. The whole area was prepped and draped in a sterile fashion. Local anesthesia was infiltrated. The #15 blade was used to open the incision, and the self-retaining retractor was used to hold the edges apart. A twist drill was used to drill a hole in the skull and the dura was coagulated. The catheter was tunneled under the scalp using the trocar and brought out of the incision site. The catheter was then inserted through the twist drill hole through the skull into the brain. Spinal fluid was accessed at first try. Spinal fluid was slightly blood tinged consistent with some of the bleeding the patient had in the basal cistern. Opening pressure was between 8 and 12 cm of water. The catheter was anchored to the scalp and the incision was closed. A sterile dressing was applied. The patient was brought back to the ICU, still intubated to continue her treatment. PATIENT'S NAME: LEONIE BUNCH [facility] AGE: 66 Y [address] ROOM: [place] [address] LOCATION: [facility] ADMIT DATE: 12/13/2016 OR/Procedure Report DISCHARGE DATE: FAMILY PHYSICIAN: Louisa Sethi MD ATTENDING PHYSICIAN: Leola Jones I was present at and performed every aspect of this procedure, assisted at some stages by operating room nurses. There were no apparent intraoperative complications. Swabs, needles, and instruments were all accounted for at the end of the case. Estimated blood loss was less than 10 mL, and there was no reason for blood transfusion. The patient's prognosis is guarded at this time with the diagnosis of the pontine hemorrhage; however, with a ventriculostomy, we will be able to monitor her intracranial pressure and also treat her hydrocephalus if she were to develop the same. LEOLA JONES MD CNO/modl /[id number] d: 12/14/169 t: 12/16/162246, OPERATIVE SUMMARY
--- NOTE | ~2016-12-13 | CON ---
PATIENT'S NAME: LEONIE BUNCH [facility] AGE: 66 Y [address] ROOM: [place] [address] LOCATION: GICU ADMIT DATE: 12/13/2016 Consultation DISCHARGE DATE: FAMILY PHYSICIAN: Louisa Sethi MD ATTENDING PHYSICIAN: Leola Hodges REFERRING PHYSICIAN: Jaylen Wolfe MD Consult for Dr. Hodges. HISTORY OF PRESENT ILLNESS: This pleasant 66-year-old lady is referred for rehab/GIRP evaluation. She is now alert, pleasant, and is status post placement of right side ventriculostomy for one time hemorrhage, done on 12/13/2016, secondary to development of hydrocephalus. PAST MEDICAL HISTORY: She has past history significant of followin. Atrial fibrillation and subdural hematoma. 2. Status post left and right knee arthroplasty, left on 10/02/2016 and right in May 2016. 3. Status post right-sided bur hole and drainage of subacute subdural hematoma on 03/14/2015. 4. 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 PHYSICAL EXAMINATION: NEUROLOGIC: She is now in the intensive care unit and monitored. Alert, fairly well oriented. Has right side upper and lower extremities slight weakness and decreased coordination, and maybe a little bit less attending to the right. She is able to talk. Her speech is clear and not wet. With slight cuing, she is able to orient herself fairly well. Her voice is clear and not wet. Tongue and soft palate are seemingly moving symmetrically at the present time. Deep tendon reflexes are 1+ throughout. She has a Duff catheter in and it is stable. VITAL SIGNS: Blood pressure 144/71, temperature 98.2, pulse 79, respiratory rate 19. She is 5 feet 1 inch tall and weighs 69.0 kg. MEDICATIONS: She is on the following medications: 1. KCl. 2. . 3. Tylenol. 4. Vancomycin. 5. Apresoline. 6. MOM. 7. Pepcid. PATIENT'S NAME: LEONIE BUNCH [facility] AGE: 66 Y [address] ROOM: [place] [address] LOCATION: [facility] ADMIT DATE: 12/13/2016 Consultation DISCHARGE DATE: FAMILY PHYSICIAN: Louisa Sethi MD ATTENDING PHYSICIAN: Leola Hodges 8. Labetalol. 9. Normal saline 0.9%. 10. Maxipime. 11. Dulera. 12. Albuterol. 13. Labetalol. ASSESSMENT AND PLAN: Now, she is on bedside therapy; PT, OT, and Speech, which I will continue. She is at risk of falling. We will watch that. I feel that this lady will benefit from intensive rehabilitation of about 3 weeks, aiming to discharge her home, and follow on an outpatient basis thereafter. All the above was explained to her. She verbalized understanding and agreement. JASON CREWS MD WMS/modl /[id number] d: 12/19/[id number] t: 12/20/16 0707, CONSULTATION REPORT
[~2016-12-13 19:50] MED LIST changes: -LIDOCAINE1 EACH TRANS
[2016-12-14 03:55] LABS: BICARBONATE 26.1 mmol/L (18.0-23.0); PCO2 35 mmHg (35-45); PO2 94 mmHg (80-90)
[2016-12-14 04:15] LABS: ALBUMIN 3.6 gm/dL (3.5-5.0); ALK PHOS 108 IU/L (33-138); ALT 32 IU/L (12-78); ANION GAP 11.3 (10.0-19.0); AST 31 IU/L (10-40); BLOOD UREA NITROGEN 18 mg/dL (6-24); CALCIUM 8.4 mg/dL (8.5-10.5); CHLORIDE 106 mMol/L (96-110); CO2 24 mMol/L (22-32); CREATININE 0.5 mg/dL (0.5-1.1); POTASSIUM 3.3 mMol/L (3.7-5.1); SODIUM 138 mMol/L (135-145); TOTAL BILIRUBIN 0.6 mg/dL (0.0-1.5); TOTAL PROTEIN 6.3 g/dL (6.0-8.4)
--- NOTE | 2016-12-14 04:38 | NUR ---
Patient arrived to ICU at 23:02 from surgery. Patient was placed on the vent in A/C mode with settings of VT 550, rate of 12 and a peep of 5. FiO2 weaned to 40% this shift. O2 sats were 99-100%. ETCO2 was 29-33 this shift. ETT secured with an ETAD 22cm at the lip. Breathsounds slightly coarse throughout bilaterally, suctioning scant amounts of thick bloody secretions. Will continue to monitor patient.8
[2016-12-14 04:39] LABS: BASOPHIL % 0.2 %; EOSINOPHIL # 0.1 K/uL (0.0-0.5); EOSINOPHIL % 1.3 %; HEMATOCRIT 36.8 % (33.0-46.0); HEMOGLOBIN 12.4 g/dL (10.0-15.0); IMMATURE GRANULOCYTE % 0.2 %; LYMPHOCYTE # 0.9 K/uL (0.8-4.0); LYMPHOCYTE % 8.7 %; MCH 31.2 pg (27.0-34.0); MCHC 33.7 gm/dL (32.0-36.5); MCV 92.5 fl (83.0-98.0); MONOCYTE # 0.8 K/uL (0.0-1.0); MONOCYTE % 7.9 %; MPV 9.3 fl (9.4-12.4); NEUTROPHIL % 81.7 %; NRBC % 0 /100WBC (0-0.00); PLATELET COUNT 257 K/uL (150-450); RBC 3.98 M/uL (3.50-5.50); RDW-CV 14.5 % (11.9-14.6); WBC 9.8 K/uL (4.0-11.0)
[2016-12-14 04:47] LABS: INR - (THERAPEUTIC) 0.95 (0.92-1.07); PTT 25 SECONDS (25-32)
--- NOTE | 2016-12-14 05:40 | NUR ---
pt admitted post fall with vito bleed. To OR for ICP and ventriculostomy. Pt pupils 3 brisk and reactive. Withdraws lower extremities only. 40% fi02. lungs slightly coarse. Pt to CT of head. pt sedated on diprivan. Carrier NS c 20 KCL at 100 ml/h. Dr Wolfe and Tracie to follow cares
[2016-12-14 12:23] LABS: BICARBONATE 24.5 mmol/L (18.0-23.0); LACTATE 0.7 mEq/L (0.50-1.60); PCO2 36 mmHg (35-45); PO2 102 mmHg (80-90)
[2016-12-14 12:37] LABS: ANION GAP 12.6 (10.0-19.0); POTASSIUM 3.6 mMol/L (3.7-5.1)
--- NOTE | 2016-12-14 13:45 | NUR ---
Introduced self and role of care management to patient's sister. Patient is on the vent and resting. She says patient lives in [place] with her . Patient's went home to shower and get some clothes. To soon to know what her discharge needs will be. Will follow.
[2016-12-14] MEDS ORDERED: LIDOCAINE1 EACH TRANS (14:32)
--- NOTE | 2016-12-14 16:55 | NUR ---
Pt on ventilator to start shift. Changed to CPAP 5/PS 8 in afternoon. Tolerated well. Weaning parameters met with NIF -25, VC 900, RSBI 60-70. Extubated to 4L NC at 1440. Started Alb UD tx post extubation.
--- NOTE | 2016-12-14 16:58 | NUR ---
Significant Event:NEURO: ICPs 3-12. Ventriculostomy remained closed at all times except to check for patency. Patient lethargic but opens eyes to command, wiggles fingers and toes to command. Stronger on left side. RESP: Extubated at 1440. 3L NC. SaO2 97-100%. Coarse lung sounds in upper lung mejia, diminished in lower mejia with left side more diminished. GI: No BM. NPO. : Adequate urine output. Input: 1006 ml. Output: 800 ml. ACTIVITY: Up in chair with mechanical lift for 2 hours this shift. SOC: Family at bedside. Follow up: CT of brain in AM.
[2016-12-14 20:18] LABS: BICARBONATE 24.6 mmol/L (18.0-23.0); LACTATE 0.7 mEq/L (0.50-1.60); PCO2 37 mmHg (35-45); PO2 76 mmHg (80-90)
[2016-12-14 20:33] LABS: ALBUMIN 3.4 gm/dL (3.5-5.0); ANION GAP 12.7 (10.0-19.0); BLOOD UREA NITROGEN 15 mg/dL (6-24); CALCIUM 8.4 mg/dL (8.5-10.5); CHLORIDE 107 mMol/L (96-110); CO2 23 mMol/L (22-32); CREATININE 0.4 mg/dL (0.5-1.1); PHOSPHORUS 3.2 mg/dL (2.5-4.9); POTASSIUM 3.7 mMol/L (3.7-5.1); SODIUM 139 mMol/L (135-145)
[2016-12-15 04:13] LABS: BICARBONATE 24.5 mmol/L (18.0-23.0); LACTATE 0.8 mEq/L (0.50-1.60); PCO2 36 mmHg (35-45)
[2016-12-15 04:16] LABS: PO2 58 mmHg (80-90)
[2016-12-15 04:34] LABS: INR - (THERAPEUTIC) 1.02 (0.92-1.07); PROTIME 10.7 SECONDS (9.8-11.4)
[2016-12-15 04:39] LABS: ALBUMIN 3.1 gm/dL (3.5-5.0); ALK PHOS 99 IU/L (33-138); ALT 28 IU/L (12-78); ANION GAP 11.3 (10.0-19.0); AST 19 IU/L (10-40); BLOOD UREA NITROGEN 13 mg/dL (6-24); CHLORIDE 105 mMol/L (96-110); CO2 23 mMol/L (22-32); CREATININE 0.4 mg/dL (0.5-1.1); POTASSIUM 3.3 mMol/L (3.7-5.1); SODIUM 136 mMol/L (135-145); TOTAL BILIRUBIN 0.5 mg/dL (0.0-1.5)
[2016-12-15 04:43] LABS: BASOPHIL # 0.1 K/uL (0.0-0.2); BASOPHIL % 0.5 %; EOSINOPHIL # 0.1 K/uL (0.0-0.5); EOSINOPHIL % 0.7 %; HEMATOCRIT 35.3 % (33.0-46.0); HEMOGLOBIN 11.5 g/dL (10.0-15.0); IMMATURE GRANULOCYTE % 0.4 %; LYMPHOCYTE # 0.6 K/uL (0.8-4.0); LYMPHOCYTE % 6.1 %; MCH 30.5 pg (27.0-34.0); MCHC 32.6 gm/dL (32.0-36.5); MCV 93.6 fl (83.0-98.0); MONOCYTE # 0.6 K/uL (0.0-1.0); MONOCYTE % 5.7 %; MPV 9.5 fl (9.4-12.4); NEUTROPHIL # (ANC) 9.1 K/uL (1.8-7.8); NEUTROPHIL % 86.6 %; NRBC % 0 /100WBC (0-0.00); PLATELET COUNT 235 K/uL (150-450); RBC 3.77 M/uL (3.50-5.50); RDW-CV 14.7 % (11.9-14.6); WBC 10.5 K/uL (4.0-11.0)
--- NOTE | 2016-12-15 05:05 | NUR ---
Significant Event: Patient drowsy but awakens with verbal stimuli. Opens eyes to command. Follows commands. Weaker on R) side. Oriented x3. Speech slightly muffled. Pupils 3mm and brisk. ICP 10-15 for majority of night. Increased to 20-40s at 0245. Attempted to open ventric and it wouldn't drain. Mannitol 20 grams given x1 with reduction in ICPs. Patient to OR at [address] Hodges to advance catheter. Labetalol 10mg given x3. SBP 130-160s. Temp controlled with meds and fan. IV acetaminophen given x2. Slightly coarse. 1L NC. Active bowel sounds. No BM. Duff drained adequate UOP. Shadow drainage on ICP/ventric dressing. Follow up: ICP/ventric follow up
[2016-12-15 12:22] LABS: BICARBONATE 24.2 mmol/L (18.0-23.0); PCO2 34 mmHg (35-45)
[2016-12-15 12:26] LABS: PO2 72 mmHg (80-90)
[2016-12-15 12:35] LABS: ANION GAP 13.7 (10.0-19.0); POTASSIUM 3.7 mMol/L (3.7-5.1)
--- NOTE | 2016-12-15 19:11 | NUR ---
Significant Event: ICP/ventric remains, ICP is now transduced. ICPs 5-10 when open. 13-15 closed. Remains clamped, but draining 15ml every hour. Red tinged in color. Pt does not open eyes, withdraws x 4, spontanous movement in the lower extremities primarily. Does not consitantly follow commands. Occasionally nods head or squeezes hand. No verbal response. Pupils equal and reactive. NPO, will attempt swallow study tomorrow. Temp 101.8 with no relief from tylenol. Cultured blood and CSF and placed on a cooling blanket. Temp now 98.4. Family at bedside. Follow up: continue plan of care.
[2016-12-15 20:12] LABS: BICARBONATE 21.9 mmol/L (18.0-23.0); LACTATE 1.2 mEq/L (0.50-1.60); PCO2 33 mmHg (35-45)
[2016-12-15 20:13] LABS: PO2 92 mmHg (80-90)
[2016-12-15 20:26] LABS: ALBUMIN 2.9 gm/dL (3.5-5.0); ANION GAP 13.3 (10.0-19.0); BLOOD UREA NITROGEN 10 mg/dL (6-24); CALCIUM 8.2 mg/dL (8.5-10.5); CHLORIDE 108 mMol/L (96-110); CO2 22 mMol/L (22-32); CREATININE 0.4 mg/dL (0.5-1.1); PHOSPHORUS 2.5 mg/dL (2.5-4.9); POTASSIUM 3.3 mMol/L (3.7-5.1); SODIUM 140 mMol/L (135-145)
--- NOTE | 2016-12-16 04:16 | NUR ---
Patient A/Ox3. Follows commands appropriatley. Opens eyes, wiggles toes, bilat hand grasp. Ventric open each hour with output 7-15ml/hr. Continues in SR SBP 130-170s. Labetolol pushes given x4 throught shift. o2 decreased to RA with o2 sats mid-upper 90s. Follow up: continue
[2016-12-16 04:39] LABS: ALBUMIN 2.8 gm/dL (3.5-5.0); ALK PHOS 97 IU/L (33-138); ALT 24 IU/L (12-78); ANION GAP 13.3 (10.0-19.0); AST 18 IU/L (10-40); BLOOD UREA NITROGEN 13 mg/dL (6-24); CALCIUM 8.1 mg/dL (8.5-10.5); CHLORIDE 109 mMol/L (96-110); CO2 22 mMol/L (22-32); CREATININE 0.4 mg/dL (0.5-1.1); POTASSIUM 3.3 mMol/L (3.7-5.1); SODIUM 141 mMol/L (135-145); TOTAL BILIRUBIN 0.4 mg/dL (0.0-1.5); TOTAL PROTEIN 6.1 g/dL (6.0-8.4)
[2016-12-16 04:43] LABS: BASOPHIL % 0.3 %; EOSINOPHIL # 0.1 K/uL (0.0-0.5); EOSINOPHIL % 0.8 %; HEMATOCRIT 32.6 % (33.0-46.0); HEMOGLOBIN 10.6 g/dL (10.0-15.0); IMMATURE GRANULOCYTE % 0.3 %; LYMPHOCYTE % 9.6 %; MCH 30.5 pg (27.0-34.0); MCHC 32.5 gm/dL (32.0-36.5); MCV 93.9 fl (83.0-98.0); MONOCYTE # 0.5 K/uL (0.0-1.0); MONOCYTE % 5.4 %; MPV 9.5 fl (9.4-12.4); NEUTROPHIL # (ANC) 8.2 K/uL (1.8-7.8); NEUTROPHIL % 83.6 %; NRBC % 0 /100WBC (0-0.00); PLATELET COUNT 225 K/uL (150-450); RBC 3.47 M/uL (3.50-5.50); RDW-CV 14.9 % (11.9-14.6); WBC 9.9 K/uL (4.0-11.0)
--- NOTE | 2016-12-16 19:48 | NUR ---
Significant Event:NEURO: Ventriculostomy opened each hour until 15ml drained off. ICPs 6-14. Blurry, double vision. Slow speech. Sometimes confused but oriented x 3. Some delusional speech. CARDIO: Labetalol 5 mg x 1 this shift for SBP 180. max temp 99.6. GI: Regular diet, clear liquids. Poor appetite. 1:1 feeder. No BM. Active bowel sounds. : Duff catheter removed.
[2016-12-16 21:00] LABS: ALBUMIN 2.8 gm/dL (3.5-5.0); ANION GAP 13.4 (10.0-19.0); BLOOD UREA NITROGEN 11 mg/dL (6-24); CALCIUM 8.2 mg/dL (8.5-10.5); CHLORIDE 111 mMol/L (96-110); CO2 21 mMol/L (22-32); CREATININE 0.4 mg/dL (0.5-1.1); PHOSPHORUS 2.1 mg/dL (2.5-4.9); POTASSIUM 3.4 mMol/L (3.7-5.1); SODIUM 142 mMol/L (135-145)
[2016-12-17 03:59] LABS: ALBUMIN 2.7 gm/dL (3.5-5.0); ALK PHOS 88 IU/L (33-138); ALT 22 IU/L (12-78); ANION GAP 11.6 (10.0-19.0); AST 19 IU/L (10-40); BLOOD UREA NITROGEN 9 mg/dL (6-24); CALCIUM 8.2 mg/dL (8.5-10.5); CHLORIDE 110 mMol/L (96-110); CO2 23 mMol/L (22-32); CREATININE 0.4 mg/dL (0.5-1.1); POTASSIUM 3.6 mMol/L (3.7-5.1); SODIUM 141 mMol/L (135-145); TOTAL BILIRUBIN 0.4 mg/dL (0.0-1.5)
[2016-12-17 04:34] LABS: BASOPHIL % 0.5 %; EOSINOPHIL # 0.2 K/uL (0.0-0.5); EOSINOPHIL % 2.6 %; HEMATOCRIT 31.7 % (33.0-46.0); HEMOGLOBIN 10.7 g/dL (10.0-15.0); IMMATURE GRANULOCYTE % 0.5 %; LYMPHOCYTE # 1.1 K/uL (0.8-4.0); LYMPHOCYTE % 14.6 %; MCH 31.7 pg (27.0-34.0); MCHC 33.8 gm/dL (32.0-36.5); MCV 93.8 fl (83.0-98.0); MONOCYTE # 0.6 K/uL (0.0-1.0); MONOCYTE % 8.6 %; MPV 9.6 fl (9.4-12.4); NEUTROPHIL # (ANC) 5.4 K/uL (1.8-7.8); NEUTROPHIL % 73.2 %; NRBC % 0 /100WBC (0-0.00); PLATELET COUNT 259 K/uL (150-450); RBC 3.38 M/uL (3.50-5.50); RDW-CV 14.5 % (11.9-14.6); WBC 7.4 K/uL (4.0-11.0)
--- NOTE | 2016-12-17 05:50 | NUR ---
patient is sleepy but easily awake will follow simple commands will answer questions correctly,moves all extremities ,pupils are 3mm rounded equal and react to light,clear upper lungs sound diminished on the bases,nc 1l/min rr=20,w7usg=37%,abd is soft bowel sounds are rare,no bowel movement.patient did not void for 6h,bladder scan showed 945ml,straight cath was done with 1000ml clear yellow u.o.p. FOLLOW UP:continue to monitor patient's hemodynamic and neuro status closely.
[2016-12-17 13:34] LABS: ANION GAP 12.1 (10.0-19.0); POTASSIUM 3.1 mMol/L (3.7-5.1)
--- NOTE | 2016-12-17 16:17 | NUR ---
Spoke with patient's daughter and sister. Daughter Carlie, says they had talked about [facility]. Talked to them about [facility] and 2 locations. She thinks [place] would be there first choice. Told them staff from [facility] was going to be here on Saturday if they wanted to visit with them. They say they would and will be here. Daughter gets call from her Dad (patient's ) and he will be here also on Sat. Called and talked with Katelyn at [facility]. Will fax information to here. Staff from [facility] will be here on Saturday. Will follow.
--- NOTE | 2016-12-17 17:48 | NUR ---
Significant Event: Patient is drowsy, awakens to voice, follows all commands, moves spontaneously x4, weaker on the R) side, confused, garbled speech at times. Q1H neuro checks. SR with HRs 60s-80s, hypertensive. PRN labetolol 10mg given x6. L) radial artline D/C'd at 1615. Lung sounds are clear and diminished throughout, spontaneous cough. Patient has active bowel sounds, regular supervised diet, no BM. Duff replaced previous shift, lasix given, patient responded well. Patient up to the chair. ICP/ventric is to be open Q1H, drain 15ml off, pink tinged CSF. D/C accuchecks. Follow up: continue to monitor.
[2016-12-17 23:39] LABS: ALBUMIN 2.9 gm/dL (3.5-5.0); ANION GAP 13.2 (10.0-19.0); BLOOD UREA NITROGEN 8 mg/dL (6-24); CALCIUM 8.6 mg/dL (8.5-10.5); CHLORIDE 105 mMol/L (96-110); CO2 26 mMol/L (22-32); CREATININE 0.6 mg/dL (0.5-1.1); PHOSPHORUS 3.2 mg/dL (2.5-4.9); POTASSIUM 3.2 mMol/L (3.7-5.1); SODIUM 141 mMol/L (135-145)
[2016-12-18 05:01] LABS: ALBUMIN 2.9 gm/dL (3.5-5.0); ALK PHOS 86 IU/L (33-138); ALT 25 IU/L (12-78); ANION GAP 10.1 (10.0-19.0); AST 19 IU/L (10-40); BLOOD UREA NITROGEN 9 mg/dL (6-24); CALCIUM 8.6 mg/dL (8.5-10.5); CHLORIDE 107 mMol/L (96-110); CO2 28 mMol/L (22-32); CREATININE 0.3 mg/dL (0.5-1.1); POTASSIUM 3.1 mMol/L (3.7-5.1); SODIUM 142 mMol/L (135-145); TOTAL BILIRUBIN 0.4 mg/dL (0.0-1.5); TOTAL PROTEIN 6.3 g/dL (6.0-8.4)
[2016-12-18 05:07] LABS: BASOPHIL % 0.5 %; EOSINOPHIL # 0.2 K/uL (0.0-0.5); HEMATOCRIT 33.6 % (33.0-46.0); HEMOGLOBIN 10.9 g/dL (10.0-15.0); IMMATURE GRANULOCYTE % 0.5 %; LYMPHOCYTE # 1.3 K/uL (0.8-4.0); LYMPHOCYTE % 16.9 %; MCH 30.4 pg (27.0-34.0); MCHC 32.4 gm/dL (32.0-36.5); MCV 93.9 fl (83.0-98.0); MONOCYTE # 0.8 K/uL (0.0-1.0); MONOCYTE % 10.3 %; MPV 9.1 fl (9.4-12.4); NEUTROPHIL # (ANC) 5.3 K/uL (1.8-7.8); NEUTROPHIL % 68.8 %; NRBC % 0 /100WBC (0-0.00); PLATELET COUNT 267 K/uL (150-450); RBC 3.58 M/uL (3.50-5.50); RDW-CV 14.4 % (11.9-14.6); WBC 7.8 K/uL (4.0-11.0)
--- NOTE | 2016-12-18 07:54 | NUR ---
Significant Event: UNABLE TO DRAIN 10-15 ML CSF UPON FIRST HOUR OF CARES; VENTRIC PATENT, DR. LAL NOTIFIED. ORDER OBTAINED TO CLAMP VENTRIC AND OPEN FOR 10 MIN FOR ICP>20. ICP RUNNING 2-11, NOT OPENED THIS SHIFT. PT REMAINS ORIENTED TO SELF, YEAR, AND SITUATION; DISORIENTED TO PLACE AND MONTH. R) EXTREMITIES REMAIN SLIGHTLY WEAKER THAN L). EYES REMAIN DEVIATED TO R). HR 60S-70S, SR ON MONITOR. SBP 120S-160S; IVP LEBATELOL GIVEN X1 DOSE. AFEBRILE, TMAX 99.2. BS ACTIVE, NO BM THIS SHIFT; UOP ADEQUATE. NO NEW SKIN ISSUES. LINES REMAIN INTACT AND PATENT. NO COMPLAINTS OF PAIN THIS SHIFT. Follow up: CONTINUE WITH ICP MONITORING DAI GONZALEZ RN
--- NOTE | 2016-12-18 10:49 | NUR ---
A - PT SCREENED D/T LOS. ICP/VENTRIC IN PLACE. A/O X 2. GLU 107, BUN/CALL CENTER SUPPORT REPRESENTATIVE 9/0.3, ALB 2.9. DIET: REGULAR W/ INTAKE REFUSED TO 50%. PT IS A 1:1 FEEDER. PT OUT OF ROOM, SISTER PRESENT AND STATES PT WOULD BE RECEPTIVE TO ENSURE. D - AT RISK W/ INADEQUATE ORAL INTAKE R/T DECREASED APPETITE AEB INTAKE RECORD. I - GOAL: 50-75% INTAKE BY DISMISSAL. M/E - WILL SEND ENSURE W/ BF AND DINNER AND F/U IN 2-4 DAYS.
--- NOTE | 2016-12-18 11:32 | NUR ---
Spoke with Katelyn at [facility] and they will be here tomorrow around 1030. Asked her to see Zulema and her family first due to family having obligations in the p.m. She said they would. Spoke with patient's and sister regarding conversation with Katelyn from [facility]. [facility] to evaluate in the a.m. Did explain to them she is not ready to transfer to [facility] yet, but will be on their watch list for when she is ready. They voice understanding and agreement. Will follow.
[2016-12-18 13:01] LABS: ANION GAP 11.7 (10.0-19.0); POTASSIUM 3.7 mMol/L (3.7-5.1)
--- NOTE | 2016-12-18 17:25 | NUR ---
PT ALERT MORE THIS AFTERNOON, QUITE DROWSY THIS AM AND PERKED UP A BIT WITH TRIP TO CT OF HEAD, WHICH WAS NEGATIVE FOR ANY ACUTE CHANGES, AND WITH PT/OT AND UP TO CHAIR. DIFFICULTY WITH PIVOTING AND WAS HEAVY 2PA, HEAD DRSG C/D/I. HR 60-90'S, AM LABETOLOL GIVEN ALONG WITH HYDRALAZINE STARTED AT 10MG Q6H PO AND GIVEN PLUS ADDT'L 5MG IVP THIS AM D/T SBP >160'S. ICP 6-20'S TODAY, DID ONLY OPEN VENTRIC FOR PATENCY CHECK WITH CLEAR DRNG. R) SIDE WEAKER THAN L) BUT MOVES ALL EXT SPONT AND TO COMMAND. STATES NAME AND AND PLACE, SOMETIMES D/O TO EXACT DATE. PEARL WITH ADEQ UOP, PT +AROUND 200MLS TODAY. NO BM, MOM GIVEN THOUGH WITH LOTS OF FLATUS HAD. IMPROVED APPETITE BUT STILL FAIR INTAKE, DENIED N/V AND H/A. NO PAIN REPORTED FOR SHIFT. R) UPPER SINGLE LUMEN PICC WITH IVF AND ABX CONTINUE.
[2016-12-18 20:15] LABS: HEMATOCRIT 37.3 % (33.0-46.0); HEMOGLOBIN 12.5 g/dL (10.0-15.0)
[2016-12-18 20:29] LABS: ALBUMIN 3.1 gm/dL (3.5-5.0); ANION GAP 12.9 (10.0-19.0); BLOOD UREA NITROGEN 7 mg/dL (6-24); CALCIUM 8.8 mg/dL (8.5-10.5); CHLORIDE 103 mMol/L (96-110); CO2 26 mMol/L (22-32); POTASSIUM 3.9 mMol/L (3.7-5.1); SODIUM 138 mMol/L (135-145)
[2016-12-18 20:33] LABS: CREATININE 0.7 mg/dL (0.5-1.1)
[2016-12-19 04:39] LABS: BASOPHIL # 0.1 K/uL (0.0-0.2); BASOPHIL % 0.6 %; EOSINOPHIL # 0.2 K/uL (0.0-0.5); EOSINOPHIL % 2.9 %; HEMATOCRIT 36.3 % (33.0-46.0); HEMOGLOBIN 11.9 g/dL (10.0-15.0); IMMATURE GRANULOCYTE # 0.1 K/uL (0.0-0.3); IMMATURE GRANULOCYTE % 0.6 %; LYMPHOCYTE # 1.2 K/uL (0.8-4.0); LYMPHOCYTE % 15.5 %; MCH 30.7 pg (27.0-34.0); MCHC 32.8 gm/dL (32.0-36.5); MCV 93.8 fl (83.0-98.0); NEUTROPHIL # (ANC) 5.5 K/uL (1.8-7.8); NEUTROPHIL % 68.4 %; NRBC % 0 /100WBC (0-0.00); PLATELET COUNT 276 K/uL (150-450); RBC 3.87 M/uL (3.50-5.50); RDW-CV 14.5 % (11.9-14.6)
[2016-12-19 04:57] LABS: ALK PHOS 93 IU/L (33-138); ALT 26 IU/L (12-78); ANION GAP 11.8 (10.0-19.0); AST 19 IU/L (10-40); BLOOD UREA NITROGEN 7 mg/dL (6-24); CALCIUM 8.8 mg/dL (8.5-10.5); CHLORIDE 106 mMol/L (96-110); CO2 25 mMol/L (22-32); CREATININE 0.4 mg/dL (0.5-1.1); POTASSIUM 3.8 mMol/L (3.7-5.1); SODIUM 139 mMol/L (135-145); TOTAL BILIRUBIN 0.4 mg/dL (0.0-1.5); TOTAL PROTEIN 6.8 g/dL (6.0-8.4)
--- NOTE | 2016-12-19 05:36 | NUR ---
Significant Event: PT CONTINUES WITH Q1H NEURO CHECKS. STRENGTH CONTINUES TO BE SLIGHTLY WEAKER ON R) AND REQUIRES MORE ENCOURAGEMENT TO MOVE THAN WITH L) EXTREMITIES. DISORIENTED TO PLACE AT TIMES, ESPECIALLY WHEN ASLEEP PRIOR TO NEURO ASSESSMENT. ORIENTED TO YEAR, OCCASIONALLY DISORIENTED TO MONTH. PERRL BRISKLY AT 3 MM, OCCASIONAL DEVIATION TO R). COMPLAINS OF BLURRY VISION BUT STATES GLASSES HELP. COMPLAINTES OF NUMBNESS TO R) SIDE EXTREMITIES EARLY IN SHIFT. ST ON MONITOR UPON TAKING OVER CARES, FEBRILE WITH TMAX OF 100.7. REMOVED BLANKETS AND FAN TURNED ON TO COOL PATIENT. AFTER TEMP DECREASED, HR BECAME SR IN THE 70S-90S. SBP 130S-150S, NO PRN LEBATELOL GIVEN THIS SHIFT. EDEMA TO R) ARM IMPROVING. BS IMPROVING, NO BM THIS SHIFT. UOP APPROPRIATE. Follow up: CONTINUE WITH SCHEDULED LABS, ENCOURAGE PT/OTCARLOS HERE TO EVAL THIS AM. DAI GONZALEZ RN
--- NOTE | 2016-12-19 11:15 | NUR ---
Horacio from [facility] her to assess patient and met with her family. They say family seems to be on board with coming to [facility] when patient is ready. They said it looks like probably early next week since she has the ICP/ventric yet. Will keep in contact with them regarding patient and when they will have a bed available. Will follow.
[2016-12-19 13:55] LABS: ANION GAP 11.8 (10.0-19.0); POTASSIUM 3.8 mMol/L (3.7-5.1)
--- NOTE | 2016-12-19 17:51 | NUR ---
PT ALERT AND ORIENTED TO SELF AND PLACE, DISORIENTED TO TIME AT TIMES. PT CONVERSATIONAL AND RESPONDS TO COMMANDS. R) EXTREMITIES WEAKER THAN L). ICP NOT OPENED THIS SHIFT. PATENCY WAS GOOD WITH CLEAR DRAINAGE. HRs 70-90s, SBPs 120-160s, afebrile. LUNG SOUNDS CLEAR AND DIMINISHED ON 1L O2 VIA NC. RARE NON-PRODUCTIVE COUGH. HEAD DRSG C/D/I. SMALL BRUISING ON BUTTOCKS. R) SINGLE LUMEN PICC, FLUSHES WELL WITH BLOOD RETURN. PATIENT DENIES HEADACHE, N/V, NUMBNESS OR TINGLING. IV FLUIDS RUNNING AND ABX CONTINUED. CARLOS VISITED PATIENT. HEAD CT IN AM, PENDING RESULTS POSSIBLE REMOVAL OF VENTRIC.
[2016-12-19 20:36] LABS: ALBUMIN 3.1 gm/dL (3.5-5.0); ANION GAP 12.1 (10.0-19.0); BLOOD UREA NITROGEN 8 mg/dL (6-24); CHLORIDE 103 mMol/L (96-110); CO2 25 mMol/L (22-32); CREATININE 0.5 mg/dL (0.5-1.1); PHOSPHORUS 3.6 mg/dL (2.5-4.9); POTASSIUM 4.1 mMol/L (3.7-5.1); SODIUM 136 mMol/L (135-145)
[2016-12-20 04:36] LABS: ALBUMIN 3.1 gm/dL (3.5-5.0); ALK PHOS 100 IU/L (33-138); ALT 28 IU/L (12-78); ANION GAP 12.9 (10.0-19.0); AST 22 IU/L (10-40); BLOOD UREA NITROGEN 8 mg/dL (6-24); CHLORIDE 103 mMol/L (96-110); CO2 25 mMol/L (22-32); CREATININE 0.4 mg/dL (0.5-1.1); POTASSIUM 3.9 mMol/L (3.7-5.1); SODIUM 137 mMol/L (135-145); TOTAL PROTEIN 7.1 g/dL (6.0-8.4)
[2016-12-20 04:38] LABS: TOTAL BILIRUBIN 0.5 mg/dL (0.0-1.5)
[2016-12-20 04:40] LABS: BASOPHIL % 0.4 %; EOSINOPHIL # 0.2 K/uL (0.0-0.5); EOSINOPHIL % 1.6 %; HEMATOCRIT 36.8 % (33.0-46.0); HEMOGLOBIN 12.3 g/dL (10.0-15.0); IMMATURE GRANULOCYTE # 0.1 K/uL (0.0-0.3); IMMATURE GRANULOCYTE % 0.9 %; LYMPHOCYTE # 1.1 K/uL (0.8-4.0); LYMPHOCYTE % 10.7 %; MCH 31.1 pg (27.0-34.0); MCHC 33.4 gm/dL (32.0-36.5); MCV 92.9 fl (83.0-98.0); MONOCYTE # 1.2 K/uL (0.0-1.0); MONOCYTE % 11.9 %; NEUTROPHIL # (ANC) 7.7 K/uL (1.8-7.8); NEUTROPHIL % 74.5 %; NRBC % 0 /100WBC (0-0.00); PLATELET COUNT 284 K/uL (150-450); RBC 3.96 M/uL (3.50-5.50); RDW-CV 14.3 % (11.9-14.6); WBC 10.4 K/uL (4.0-11.0)
--- NOTE | 2016-12-20 06:00 | NUR ---
Significant Event: Pt is alert and orineted x3, can be forgetful at times. Pupils are equal and reactive. Moves all extremities spontaneously and to command. R) extremity weakness. Denies any numbness or tingline. ICP/Ventric in place, and has been clamped throughout this shift. No PRN blood pressure medications given for HTN this shift. Pt remains on 1L of O2 via NC. Pt on a Regular diet, bowel sounds are active. Duff cath in place with good urine output. PICC in place in the R) arm. Follow up: Possible ICP/Ventric removal today.
--- NOTE | 2016-12-20 09:21 | NUR ---
A - NUTRITION F/U. A/O. GLU 106, BUN/ACO COORDINATOR 8/0.4, ALB 3.1. PT W/ 1+ EDEMA T/O. DIET: REGULAR W/ ENSURE BID. PT STATES SHE LIKES THE ENSURE, PREFERS [facility] AND [facility]. INTAKE 0-50%. PLAN IS FOR GIRP. D - AT RISK W/ INADEQUATE ORAL INTAKE R/T DECREASED APPETITE AEB INTAKE RECORD. I - GOAL: 50% OR BETTER INTAKE BY NEXT REVIEW. M/E - WILL CONT TO MONITOR AND ENCOURAGE INTAKE. F/U IN 4-6 DAYS.
--- NOTE | 2016-12-20 17:24 | NUR ---
Significant Event: PATIENT DROWSY THROUGHTOUT AFTERNOON, WILL AWAKEN TO VOICE, FOLLOWS COMMANDS, MOVES SPONTANEOUSLY IN ALL 4 EXTREMETIES. VENTRIC CLOSED, TO BE DISCONTINUED TODAY, ICP 3-15, PATIENT DID COMPLAIN OF A HEADACHE AT 1400, TYLENOL GIVEN, HEADACHE RESOLVED. PATIENT STATES VERY ACHEY THROUGHOUT BODY. PERRLA. DR. JONES NOTIFIED OF INCREASED DROWSINESS. PATIENT SR-ST, WITH HRs 80S-100S. AFIBRILE. LUNGS ARE CLEAR AND DIM THROUGHOUT, OCCASIONAL NON PRODUCTIVE COUGH, O2 NEEDED WHILE RESTING, 1 L NC TO KEEP SATS GREATER THAN 90%. BOWEL SOUNDS ACTIVE, PATIENT HAS DECREASED APPETITE, NO BM, NEW ORDER TO GIVE SUPPOSITORY. PEARL WITH 1480ML OUT, YELLOW, NO SEDIMENT, WE ARE TO PULL PEARL AFTER PATIENT HAS A BM. PATIENT UP SEVERAL TIMES WITH THERAPY, PIVOT. Follow up: REHAB
[2016-12-20 20:38] LABS: CALCIUM 8.9 mg/dL (8.5-10.5); CHLORIDE 103 mMol/L (96-110); CO2 27 mMol/L (22-32); CREATININE 0.5 mg/dL (0.5-1.1); SODIUM 136 mMol/L (135-145)
[2016-12-20 20:43] LABS: BLOOD UREA NITROGEN 13 mg/dL (6-24); PHOSPHORUS 2.8 mg/dL (2.5-4.9)
[2016-12-21 04:53] LABS: ALBUMIN 2.9 gm/dL (3.5-5.0); ANION GAP 9.9 (10.0-19.0); BLOOD UREA NITROGEN 10 mg/dL (6-24); CALCIUM 9.1 mg/dL (8.5-10.5); CHLORIDE 104 mMol/L (96-110); CO2 27 mMol/L (22-32); CREATININE 0.3 mg/dL (0.5-1.1); PHOSPHORUS 3.5 mg/dL (2.5-4.9); POTASSIUM 3.9 mMol/L (3.7-5.1); SODIUM 137 mMol/L (135-145)
--- NOTE | 2016-12-21 04:55 | NUR ---
Significant Event: Patient is alert and oriented x3. Is drowsy and difficult to arouse at times. Pupils equal and reactive. Follows commands. RUE weakness. ICP ventric remained closed. ICPs between 2-10. Hydralazine held x2 for SBPs less than 110. 1-2L NC. Active bowel sounds with one moderate BM. Duff patent with adequate UOP. Denies pain. R) PICC in place with NS/10meq KCL at 20ml/hr. Follow up: Continue to monitor neurological status, possible ICP/ventric removal today
--- NOTE | 2016-12-21 15:30 | NUR ---
Spoke with Sarah at [facility] this a.m. and update faxed. Talked to patient, and sister and they are talking about her going to [facility]. They say Dr. Hodges wants patient to stay closer. Talked to them about both [facility] and [facility]. Answered their questions. then says told them she could stay here a couple of weeks on our inpatient rehab unit and then transfer to [facility]. Told him they can not do that. Told them in order for insurance to cover she has to go to one inpatient rehab unit and stay there until ready to go home or to next level of care. Told him I will talk to Carolina on [facility] and Katelyn at [facility] to make sure that is correct. Told them I will also put her on the [facility] waiting list. Talked to Carolian on [facility] and she says insurance wont' pay for inpatient rehab at 2 locations unless very significant reason for the transfer and she said this would not be a significant reason. She will put patient on their waiting list. Talked to Katelyn at [facility] and she also says insurance will not allow patient to change location midway through therapy. Talked to again this afternoon and updated him on information from [facility] and [facility] on insurance coverage of 2 different in rehab units. He says he has talked with Zulema and she would like to go to [facility]. He says he will talk with Dr. Hodges some more and with their children and they will have a decision on Saturday regarding [facility] or [facility]. Will follow.
[2016-12-21 16:22] LABS: POTASSIUM 4.2 mMol/L (3.7-5.1)
--- NOTE | 2016-12-21 17:11 | NUR ---
Significant Event: Patient A/O x3, drowsy at times, will awaken to voice, moves all extremeties spontaneously, R) sided weakness. Patient is supervised feeder, pockets food on R), slight numbness to R) side. ICP 2-12, ventric D/C'd at [address] Hodges, site stapled and covered, no drainage noted. SR with HRs 70s-90s, afibrile. Lungs clear and dim, slight non-productive cough. Bowel sounds active, no bm this shift. Duff D/C. Changed to Q4H neuro Follow up: continue, rehab.
[2016-12-22 04:19] LABS: ANION GAP 12.8 (10.0-19.0); BLOOD UREA NITROGEN 11 mg/dL (6-24); CHLORIDE 103 mMol/L (96-110); CO2 26 mMol/L (22-32); CREATININE 0.4 mg/dL (0.5-1.1); PHOSPHORUS 3.7 mg/dL (2.5-4.9); POTASSIUM 3.8 mMol/L (3.7-5.1); SODIUM 138 mMol/L (135-145)
--- NOTE | 2016-12-22 05:46 | NUR ---
Significant Event:Neuro status continues to improve. Pt more interactive as shift went on. Pt felt the need to void, unable to go. Bladder scanned for 450mls. Straight cath performed, 400mls out. Hydralazine held X 2 for SBP < 110. Follow up:Change Status.
[2016-12-22 17:47] LABS: POTASSIUM 3.9 mMol/L (3.7-5.1)
--- NOTE | 2016-12-22 18:27 | NUR ---
Assumed care of patient at 0630. patient is alert oriented, vital signs wnl has an dressing on the head, no redness, no drainage. has rt side weakness. oob to chair for 4 hrs, family here family updated. pt . ot . st worked with patient today.
--- NOTE | 2016-12-23 04:27 | NUR ---
Significant Event: Patient is A/O x 3. Forgetful of place at times. Has been drowsy. Follows commands. Moves all extremities spontaneously. RLE weaker than left. RUE weaker than left. Perrl. C/O headache and back pain this shift, tylenol given. On 1 L of 02 NC while sleeping. VSS. Afebrile. Duff catheter intact, adequate urine output. PICC to [facility] . Bath given this shift. Follow up: Encourage PO intake. Turn q2.
[2016-12-23 07:52] LABS: ALBUMIN 3.2 gm/dL (3.5-5.0); ANION GAP 10.2 (10.0-19.0); BLOOD UREA NITROGEN 13 mg/dL (6-24); CALCIUM 9.5 mg/dL (8.5-10.5); CHLORIDE 106 mMol/L (96-110); CO2 27 mMol/L (22-32); CREATININE 0.5 mg/dL (0.5-1.1); PHOSPHORUS 4.7 mg/dL (2.5-4.9); POTASSIUM 4.2 mMol/L (3.7-5.1); SODIUM 139 mMol/L (135-145)
--- NOTE | 2016-12-23 18:04 | NUR ---
PT ALERT, DROWSY AT TIMES AND ESPECIALLY WITH INCREASED ACTIVITY. ORIENTED TO SELF AND TOWN, STATED TO BE "IN A BOAT" THIS AFTERNOON, BUT ALSO HAD MINOR HALLUCINATIONS, DELIRIUM TEST NEGATIVE, MD AWARE. REPEAT HEAD CT THIS AFTERNOON S/P FALL FROM COMMODE WITH NEGATIVE FILM AND SHOWING IMPROVEMENT. R) SIDE WEAKER, LEANS TO LEFT SIGNIFICANTLY, AND NEEDS TO BE MONITORED WHEN UP IN CHAIR AND COMMODE BY STAFF OR FAMILY. VSS, TRACE EDEMA TO R) SIDE, PRISCILA BP MEDS GIVEN TODAY. LS C/D, ON RA WITH UPPER 90'S SATS, NON-PROD COUGH. PEARL WITH SLIGHT SEDIMENT AND ADEQ UOP. I/O SATISFACTORY, SMALL BM X1, 50-75% OF MEALS EATEN. NO N/V/D, C/O SLIGHT H/A WITH 500MG TYLENOL EXTRA STRENGTH GIVEN AROUND 1400 WITH RELIEF. C/O L) SHOULDER ACHY AND L) WRIST S/P FALL BUT HAS ALREADY SUBSIDED. L) POSTERIOR WRIST SMALL ECCHYMOTIC AREA S/P FALL. R) UPPER PICC S.L. UP TO CHAIR WITH RN/PRINT CONTROLLER AND PT/OT. PLAN FOR REHAB WHEN ACCEPTED AND FAMILY MAKES DECISION.
[2016-12-24 04:24] LABS: ALBUMIN 3.2 gm/dL (3.5-5.0); ANION GAP 11.7 (10.0-19.0); BLOOD UREA NITROGEN 12 mg/dL (6-24); CALCIUM 9.1 mg/dL (8.5-10.5); CHLORIDE 105 mMol/L (96-110); CO2 26 mMol/L (22-32); CREATININE 0.4 mg/dL (0.5-1.1); PHOSPHORUS 4.3 mg/dL (2.5-4.9); POTASSIUM 3.7 mMol/L (3.7-5.1); SODIUM 139 mMol/L (135-145)
--- NOTE | 2016-12-24 05:22 | NUR ---
Significant Event: PATIENT A/OX3. FORGETFUL AT TIMES. RUE WEAKER THAN LEFT. FOLLOWS COMMANDS. MOVES ALL EXTREMITIES SPONTANEOUSLY. PUPILS 3.0 AND BRISK. LUNGS CLEAR AND DIMINISHED ON ROOM AIR. AFEBRILE. HEART RATE 70S-80S. SBP 100S-150S. MAPS 70-110S. PEARL CATHETER INTACT. BATH GIVEN. PICC TO RUE. UP 2 ASSIST. TAKES PILLS WHOLE IN APPLESAUCE. Follow up: TURN Q2.
--- NOTE | 2016-12-24 08:56 | NUR ---
A - NUTRITION F/U. A/O X 3, FORGETFUL AT TIMES. GLU 111, BUN/LIBRARY CATALOGING TECHNICIAN 12/0.4, ALB 3.2. WT IS STABLE. 1+ EDEMA T/O. DIET: REGULAR W/ ENSURE BID. INTAKE 25-100% (AVERAGE 55%). INTAKE IMPROVING. D - AT RISK W/ INADEQUATE ORAL INTAKE R/T DECREASED APPETITE AEB INTAKE RECORD. I - GOAL: 50-75% AVERAGE INTAKE BY NEXT REVIEW. M/E - CONT TO ENCOURAGE MEAL AND SUPPLEMENT INTAKE. WILL F/U IN 3-5 DAYS.
--- NOTE | 2016-12-24 17:28 | NUR ---
PATIENT IS ALERT AND ORIENTED. SHE IS MOVING HER LEFT HAND AGAINST GRAVITY. SQUEEZES MY FINGERS ON COMMAND. OB TO CHAIR FOR 6 HRS TODAY. CV WAS WITHIN NORMAL LIMITS, AMD RESP AND GI . PEARL REMOVED AT 1600. DUE TO VOID IN 6 HRS. SKIN IS LOOKING GOOD AND BLAIR TO THE HEAD REMOVED BY DR PRESLEY. FAMILY HERE WITH PATIENT.PATIENT IS SUPPOSED TO BE MOVED TO [facility] TOMORROW. WAITING FOR OFFICE RUNNER TO INITIATE. PATIENT IS LOOKING FORWARD TO REHAB.
--- NOTE | 2016-12-24 17:39 | NUR ---
Several calls through out the day with Katelyn at [facility]. Updates faxed to her this a.m. Talked with patient's and daughter. They have decided on [facility] in [place]. Talked to them about being ready soon. They say they wish they could take Dr. Hodges with them as they appreciate him and comfortable with his care. Talked to them about ambulance transfer to [facility]. Gave them choices of providers and says it does not matter as long as they are in network with their insurance. Talked to Dr. Hodges and he says she will be ready for transfer tomorrow to [facility]. Received call from Katelyn and her insurance has approved transfer to [facility] tomorrow. Called [facility] and set up for transfer to [facility] in [place] tomorrow at 1000 a.m. Will need to touchbase in a.m. with Katelyn at [facility] to get number for nurse to nurse report and will need to fax orders in a.m. Will follow.
--- NOTE | 2016-12-24 19:23 | NUR ---
WALKED TO THE PATIENT TO SAY BYE SINCE SHE WAS GOING TO REHAB TOMORROW, HER HEART RATE WAS IN THE 190'S. RYTHM CHECKED, SVT, CALLED [facility] THE CHARGE NURSE AND EKG DONE, PACER PADS ATTACHED, CALLED DR DANYELL SCHERER , HE ARRIVED IN 2 MINUTES, ADENOSINE 6 MGS GIVEN , NS 500 ML BOLUS STARTED, PATIENT 'S RYTHM CHANGE TO SINUS TACHY, SHE IS ASYMPTOMATIC AT PRESENT. TALKING. AND WATCHING TV NOW. PATIENT'S RELATIVES TO BE INFORMED BY ONCOMING RN.
--- NOTE | 2016-12-25 05:34 | NUR ---
Significant Event: Pt had several episodes of SVT. Adenosine given, Aminoderone bolus and drip initiated. Burns remained in NSR with good B/P's with treatment plan. Family was updated several times. 2 D Echo ordered for later today. Duff catheter replaced d/t urinary retention. Follow up:
[2016-12-25 09:01] LABS: ALBUMIN 3.2 gm/dL (3.5-5.0); ANION GAP 10.7 (10.0-19.0); BLOOD UREA NITROGEN 12 mg/dL (6-24); CALCIUM 9.1 mg/dL (8.5-10.5); CHLORIDE 107 mMol/L (96-110); CO2 26 mMol/L (22-32); CREATININE 0.5 mg/dL (0.5-1.1); PHOSPHORUS 3.4 mg/dL (2.5-4.9); POTASSIUM 3.7 mMol/L (3.7-5.1); SODIUM 140 mMol/L (135-145)
--- NOTE | 2016-12-25 12:29 | NUR ---
0900 BED BATH AND LINEN CHANGE. PATIENT UP TO CHAIR AFTER BATH WITH PT. BREAKFAST ORDERED. MEDS TAKEN WITH APPLESAUCE.
--- NOTE | 2016-12-25 15:03 | NUR ---
I got a call around 915 today from RN that pt went into SVT so not going to [facility] today. I spoke with nursing and she believes the family is aware. I called Katelyn with [facility] and updated her and faxed additional information. She states they maybe able to accept tomorrow pending plan. I then called pt analia and daughter and updated them and they were aware. I explained she maybe ready to go to [facility] tomorrow or the next pending stability and up to the doctors. Rosa the daughter wants to make sure her heart gets back because this is the 3rd time she has done this and mentioned ablation. I then spoke with Akiko KEEN regarding daughter wanting a call from Dr Clancy. Akiko stated she gave the daughter Dr Clancy number.
--- NOTE | 2016-12-25 17:07 | NUR ---
PATIENT IS MOTIVATE TO GET OUT OF THE HOSPITAL. SHE CAN CARRY ON A VERY LUCID CONVERSATION AND MAKES JOKES. SHE IS A TWO ASSIST TO STAND AND TENDS TO STAND AND GET HER FEET TWISTED AROUND EACH OTHER. IT TAKES A MOMENT OF REMINDING TO HELP HER MOVE HER FEET IN THE RIGHT DIRECTTION. HE RIGHT SIDE TENDS TO BE A BIT WEAKER THAN HER LEFT. SHE IS ON ROOM AIR AND A REGULAR DIET. 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 PATIENT HAS A PEARL RIGHT NOW BECAUSE OF URNIARY RETENTION LAST NIGHT. URINE HAS CLEARED UP DURING THE DAY. ONE LARGE BOWEL MOVEMENT THIS MORNING AND A VERY SMALL ONE THIS AFTERNOON. PATIENT USES CALL LIGHT FOR ASSISTANCE. SHE TAKES MEDS WHOLE WITH APPLESAUCE. SHE IS CURRENTLY ON AN AMIO DRIP FROM A SVT EPISODE LAST NIGHT AND WILL GO TO PO MEDS SOME TIME IN THE AM. GOAL IS STILL TO GO TO REHAB CENTER WITHIN THE NEXT FEW DAYS.
[2016-12-26 04:27] LABS: ALBUMIN 3.4 gm/dL (3.5-5.0); ANION GAP 10.6 (10.0-19.0); BLOOD UREA NITROGEN 11 mg/dL (6-24); CALCIUM 9.4 mg/dL (8.5-10.5); CHLORIDE 106 mMol/L (96-110); CO2 26 mMol/L (22-32); CREATININE 0.4 mg/dL (0.5-1.1); PHOSPHORUS 3.9 mg/dL (2.5-4.9); POTASSIUM 3.6 mMol/L (3.7-5.1); SODIUM 139 mMol/L (135-145)
--- NOTE | 2016-12-26 05:23 | NUR ---
Patient becomes disoriented to time/place when becomes drowsy. Moves all extremites x4. Some weakness lifting R) upper extremity while patient was drowsy. Strength increases with awakeness. Complained of a RIVERA this shift which was relieved with tylenol. PERRLA. SR with HR 60-70s. SBP 120-130s. Amio gtt off and changed to PO. Increased bruising noted to bottom and knees. Follow up: monitor cardio status, transfer to rehab when stable.
--- NOTE | 2016-12-26 09:15 | NUR ---
I was up on ICU and DR Hodges was present and stated pt can go to [facility] [place]. I asked nursing and they were unsure. I told them I told family if all was well with cardiology there could be a good chance to go today. Dr Angelo then called Dr Silverio. I called Katelyn at [facility] and updated her that pt is in sinus and on po meds. She states they can take today. I then met with pt, her son Uche and her sister and explained we can go to [facility] today if that works ok for them and the son agreed. I asked if I needed to call his sister and father and he got on the phone and they all agreed to go today. Dr Angelo stated Dr Clancy will be coming by to see the pt but should be able to go and Dr Garrett was updated as well. I did fax orders and nurse to call report. WIll assist as needed. I then updated Katelyn around 1115 about the all is good with EKG and she stated if she had questions would let me know and leaving shortly at 1230.
--- NOTE | 2016-12-26 12:58 | NUR ---
SIGNIFICANT EVENT: PATIENT ALERT, ORIENTED X3 PRIOR TO DISCHARGE. INCONSISTENTLY ORIENTED TO PLACE. MAKES SOME CONFUSED/FORGETFUL COMMENTS. PATIENT'S SPEECH IS SLOW. OPENS EYES SPONT AND TO VOICE. PUPILS EQUAL AND ALERT. APPROPRIATELY CONVERSATIONAL. PATIENT MOVES ALL 4 EXTREMITIES SPONTANEOUSLY AND TO COMMANDS. R) SIDE SLIGHTLY WEAKER THAN L). PATIENT DENIES ANY HEADACHES OR PAIN. PATIENT HAS BEEN IN SINUS RHYTHM THROUGHOUT THE DAY. HR 60-70S. PULSES PALPABLE THROUGHOUT. BP STABLE, ABP 120S, MAP>65. DR MONZON SAW PATIENT TODAY, ADDRESSED DISCHARGE CARDIAC MEDICATIONS AND EKG OBTAINED, AWARE OF RESULTS. PATIENT HAS BEEN ON ROOM AIR, SATS MID 90S. PATIENT ON REGULAR DIET, THIN LIQUIDS, TOLERATING WELL WITH SIPPY CUP TO LIMIT VOLUME. BOWEL SOUNDS ACTIVE, 1 BM TODAY. PEARL INTACT, ADEQUATE URINE OUTPUT. NO NEW SKIN ISSUES. PATIENT REFUSED BATH. REPOSITIONED MINIMALLY EVERY 2 HOURS. FOLLOW UP: TRANSFERED TO [facility] AT 1219. DR JONES, DR MACIAS, AND DR MONZON/DR STANTON AWARE OF TRANSFER AND SAW PATIENT PRIOR TO DISCHARGE. JOSE [facility] RN GIVEN REPORT. ALL BELONGINGS SENT WITH FAMILY. ACRE MANAGEMENT AWARE OF TRANSFER.
== END 2016-12-26 12:19 | DRG 24 ==
LOC: GACC 19:50 → GICU 20:15
PROVIDERS: Anesthesiology; ADMIT Neurological Surgery
PROC: 00163JB Bypass Cerebral Ventricle to Cerebral Cisterns with Synthetic Substitute, Percutaneous Approach (ICD-10-PCS; principal; 2016-12-13)
PROC: 5A1945Z Respiratory Ventilation, 24-96 Consecutive Hours (ICD-10-PCS; principal; 2016-12-13)
PROC: 00W Central Nervous System and Cranial Nerves, Revision (ICD-10-PCS; 2016-12-15)
PROC: B246ZZZ Ultrasonography of Right and Left Heart (ICD-10-PCS; 2016-12-25)
DX: S06.389A Contusion, laceration, and hemorrhage of brainstem with loss of consciousness of unspecified duration, initial encounter (principal); I48.0 Paroxysmal atrial fibrillation; I47.1 Supraventricular tachycardia; R40.2411 Glasgow coma scale score 13-15, in the field [EMT or ambulance]; W10.9XXA Fall (on) (from) unspecified stairs and steps, initial encounter; E78.5 Hyperlipidemia, unspecified; E87.6 Hypokalemia; I10 Essential (primary) hypertension; J45.909 Unspecified asthma, uncomplicated; K21.9 Gastro-esophageal reflux disease without esophagitis; R47.81 Slurred speech; R20.0 Anesthesia of skin; R29.810 Facial weakness
CPT/HCPCS: C1751; J0131; J0153; J0282; J0360; J0690; J0692; J1940; J2370; J2704; J3370; J3480; J7030; J7040; J7050; J7060

== ENCOUNTER → 2016-12-13 | Outpatient (CLI) | payer BC, MEDICARE ==
[~2016-12-13] MED LIST changes: +LIDOCAINE1 EACH TRANS
== END | disposition disaster alternative care site (69) ==
LOC: GAIR 19:24
DX: I63.9 Cerebral infarction, unspecified (principal); D64.9 Anemia, unspecified; I49.9 Cardiac arrhythmia, unspecified; I48.91 Unspecified atrial fibrillation; I25.10 Atherosclerotic heart disease of native coronary artery without angina pectoris; I10 Essential (primary) hypertension; R20.0 Anesthesia of skin; Z79.1 Long term (current) use of non-steroidal anti-inflammatories (NSAID); Z79.899 Other long term (current) drug therapy
CPT/HCPCS: A0422; A0431; A0436; J2250; J3010

== ENCOUNTER → 2016-12-26 | Outpatient (CLI) | payer BC, MEDICARE ==
[~2016-12-26] MED LIST changes: +LIDOCAINE1 EACH TRANS
== END | disposition disaster alternative care site (69) ==
LOC: GAMB 12:15
DX: R53.1 Weakness (principal); I47.1 Supraventricular tachycardia; S09.90XD Unspecified injury of head, subsequent encounter; Z96.0 Presence of urogenital implants; I48.2 Chronic atrial fibrillation; I62.00 Nontraumatic subdural hemorrhage, unspecified; W18.30XD Fall on same level, unspecified, subsequent encounter; Z88.0 Allergy status to penicillin; Z88.2 Allergy status to sulfonamides; Z88.8 Allergy status to other drugs, medicaments and biological substances; Z79.82 Long term (current) use of aspirin; Z79.899 Other long term (current) drug therapy
CPT/HCPCS: A0425; A0428